=== PATIENT | female | born 1940 | race Caucasian/White ===

== ENCOUNTER → 2023-05-22 13:50 | Outpatient (REF) | payer OTHER, SELFPAY ==
[2023-05-22 14:41] LABS: % Basophils 0.8 % (0-2); % Eosinophils 3.4 % (0-6); % Immature Granulocytes 0.4 % (0-0.5); % Lymphocytes 11.2 % (20.5-51.1); % Monocytes 5.8 % (1.7-9.3); % Neutrophils 78.4 % (42.2-75.2); Absolute Basophils 0.1 10^3/uL (0-0.2); Absolute Eosinophils 0.3 10^3/uL (0-0.7); Absolute Monocytes 0.5 10^3/uL (0.1-0.6); Absolute Neutrophils 6.7 10^3/uL (1.4-6.5); Hematocrit 39.4 % (37.0-47.0); Hemoglobin 13.3 g/dL (12.0-16.0); Mean Corp Hgb Conc. 33.8 g/dL (33.0-37.0); Mean Corpuscular Volume 88.9 fL (81.0-99.0); Mean Platelet Volume 10.1 fL (7.4-10.4); Nucleated Red Blood Cells % 0 %; Platelet Count 258 10^3/uL (130-400); Red Blood Cell Count 4.43 10^6/uL (4.20-5.40); Red Cell Dist. Width 14.6 % (11.5-14.5); White Blood Cell Count 8.5 10^3/uL (4.8-10.8)
[2023-05-22 15:25] LABS: ALT (SGPT) 28 U/L (0-35); AST (SGOT) 30 U/L (14-36); Albumin 2.6 g/dl (3.5-5.0); Alkaline Phosphatase 183 U/L (38-126); Blood Urea Nitrogen 13 mg/dl (7-17); Calcium 7.9 mg/dl (8.4-10.2); Carbon Dioxide 29 mmol/L (22-30); Chloride 109 mmol/L (98-107); Direct Bilirubin 0.5 mg/dl (0.0-0.4); Glucose 98 mg/dl (70-99); Magnesium 2.3 mg/dl (1.6-2.3); Phosphorus 3.5 mg/dl (2.5-4.5); Potassium 4.4 mmol/L (3.5-5.1); Sodium 136 mmol/L (135-145); Total Bilirubin 0.5 mg/dl (0.2-1.3); Total Protein 4.9 g/dl (6.3-8.2); eGFR > 60.00
== END ==
LOC: REG 13:50
PROVIDERS: ATTENDING PHYSICIAN Internal Medicine Hematology & Oncology; FAMILY PHYSICIAN Internal Medicine
DX: C34.11 Malignant neoplasm of upper lobe, right bronchus or lung (principal); C78.7 Secondary malignant neoplasm of liver and intrahepatic bile duct; C79.51 Secondary malignant neoplasm of bone
CPT/HCPCS: 36415; 80053; 82248; 83735; 84100; 85025

== ENCOUNTER → 2023-06-04 06:38 | Outpatient (REF) | payer OTHER, SELFPAY ==
[2023-06-04 07:06] LABS: % Basophils 0.9 % (0-2); % Immature Granulocytes 0.3 % (0-0.5); % Lymphocytes 18.4 % (20.5-51.1); % Monocytes 10.8 % (1.7-9.3); % Neutrophils 66.6 % (42.2-75.2); Absolute Basophils 0.1 10^3/uL (0-0.2); Absolute Eosinophils 0.2 10^3/uL (0-0.7); Absolute Lymphocytes 1.2 10^3/uL (1.2-3.4); Absolute Monocytes 0.7 10^3/uL (0.1-0.6); Absolute Neutrophils 4.4 10^3/uL (1.4-6.5); Hematocrit 39.2 % (37.0-47.0); Hemoglobin 12.8 g/dL (12.0-16.0); Mean Corp Hgb Conc. 32.7 g/dL (33.0-37.0); Mean Corpuscular Hgb 29.6 pg (27.0-31.0); Mean Corpuscular Volume 90.7 fL (81.0-99.0); Mean Platelet Volume 9.5 fL (7.4-10.4); Nucleated Red Blood Cells % 0 %; Platelet Count 242 10^3/uL (130-400); Red Blood Cell Count 4.32 10^6/uL (4.20-5.40); Red Cell Dist. Width 14.2 % (11.5-14.5); White Blood Cell Count 6.6 10^3/uL (4.8-10.8)
[2023-06-04 07:32] LABS: ALT (SGPT) 22 U/L (0-35); AST (SGOT) 24 U/L (14-36); Albumin 2.5 g/dl (3.5-5.0); Alkaline Phosphatase 143 U/L (38-126); Blood Urea Nitrogen 16 mg/dl (7-17); Calcium 8.1 mg/dl (8.4-10.2); Carbon Dioxide 28 mmol/L (22-30); Chloride 106 mmol/L (98-107); Direct Bilirubin 0.3 mg/dl (0.0-0.4); Glucose 105 mg/dl (70-99); Phosphorus 3.2 mg/dl (2.5-4.5); Potassium 3.7 mmol/L (3.5-5.1); Sodium 138 mmol/L (135-145); Total Bilirubin 0.4 mg/dl (0.2-1.3); Total Protein 4.8 g/dl (6.3-8.2); eGFR > 60.00
== END ==
LOC: REG 06:38
PROVIDERS: ATTENDING PHYSICIAN Internal Medicine Hematology & Oncology; FAMILY PHYSICIAN Internal Medicine
DX: C34.11 Malignant neoplasm of upper lobe, right bronchus or lung (principal); C78.7 Secondary malignant neoplasm of liver and intrahepatic bile duct; C79.51 Secondary malignant neoplasm of bone
CPT/HCPCS: 36415; 80053; 82248; 83735; 84100; 85025

== ENCOUNTER → 2023-06-15 08:54 | Outpatient (REF) | payer OTHER, SELFPAY | LOC: MRI 08:54 | PROVIDERS: ATTENDING PHYSICIAN Nurse Practitioner Adult Health; FAMILY PHYSICIAN Internal Medicine | DX: C34.11 Malignant neoplasm of upper lobe, right bronchus or lung (principal); C78.7 Secondary malignant neoplasm of liver and intrahepatic bile duct; C79.51 Secondary malignant neoplasm of bone | CPT/HCPCS: 72158; A9575 ==

== ENCOUNTER → 2023-06-18 12:08 | Outpatient (REF) | payer OTHER, SELFPAY ==
[2023-06-18 12:57] LABS: % Basophils 0.6 % (0-2); % Eosinophils 1.7 % (0-6); % Immature Granulocytes 0.5 % (0-0.5); % Monocytes 7.9 % (1.7-9.3); % Neutrophils 76.3 % (42.2-75.2); Absolute Basophils 0.1 10^3/uL (0-0.2); Absolute Eosinophils 0.2 10^3/uL (0-0.7); Absolute Lymphocytes 1.1 10^3/uL (1.2-3.4); Absolute Monocytes 0.7 10^3/uL (0.1-0.6); Absolute Neutrophils 6.6 10^3/uL (1.4-6.5); Hematocrit 45.7 % (37.0-47.0); Hemoglobin 15.5 g/dL (12.0-16.0); Mean Corp Hgb Conc. 33.9 g/dL (33.0-37.0); Mean Corpuscular Hgb 29.5 pg (27.0-31.0); Mean Corpuscular Volume 86.9 fL (81.0-99.0); Mean Platelet Volume 10.1 fL (7.4-10.4); Nucleated Red Blood Cells % 0 %; Platelet Count 276 10^3/uL (130-400); Red Blood Cell Count 5.26 10^6/uL (4.20-5.40); Red Cell Dist. Width 14.1 % (11.5-14.5); White Blood Cell Count 8.7 10^3/uL (4.8-10.8)
[2023-06-18 13:32] LABS: ALT (SGPT) 30 U/L (0-35); AST (SGOT) 35 U/L (14-36); Albumin 2.9 g/dl (3.5-5.0); Alkaline Phosphatase 142 U/L (38-126); Blood Urea Nitrogen 18 mg/dl (7-17); Calcium 8.9 mg/dl (8.4-10.2); Carbon Dioxide 36 mmol/L (22-30); Chloride 95 mmol/L (98-107); Direct Bilirubin 0.4 mg/dl (0.0-0.4); Glucose 123 mg/dl (70-99); Magnesium 2.1 mg/dl (1.6-2.3); Phosphorus 3.3 mg/dl (2.5-4.5); Potassium 3.1 mmol/L (3.5-5.1); Sodium 137 mmol/L (135-145); Total Bilirubin 0.9 mg/dl (0.2-1.3); Total Protein 5.7 g/dl (6.3-8.2); eGFR > 60.00
== END ==
LOC: REG 12:08
PROVIDERS: ATTENDING PHYSICIAN Internal Medicine Hematology & Oncology; FAMILY PHYSICIAN Internal Medicine
DX: C34.11 Malignant neoplasm of upper lobe, right bronchus or lung (principal); C78.7 Secondary malignant neoplasm of liver and intrahepatic bile duct; C79.51 Secondary malignant neoplasm of bone
CPT/HCPCS: 36415; 80053; 82248; 83735; 84100; 85025

== ENCOUNTER → 2023-07-02 14:21 | Outpatient (REF) | payer OTHER, SELFPAY ==
[2023-07-02 14:54] LABS: % Basophils 0.7 % (0-2); % Eosinophils 1.6 % (0-6); % Immature Granulocytes 0.2 % (0-0.5); % Lymphocytes 14.4 % (20.5-51.1); % Monocytes 5.2 % (1.7-9.3); % Neutrophils 77.9 % (42.2-75.2); Absolute Basophils 0.1 10^3/uL (0-0.2); Absolute Eosinophils 0.1 10^3/uL (0-0.7); Absolute Lymphocytes 1.2 10^3/uL (1.2-3.4); Absolute Monocytes 0.4 10^3/uL (0.1-0.6); Absolute Neutrophils 6.2 10^3/uL (1.4-6.5); Hematocrit 42.4 % (37.0-47.0); Hemoglobin 14.2 g/dL (12.0-16.0); Mean Corp Hgb Conc. 33.5 g/dL (33.0-37.0); Mean Corpuscular Hgb 29.3 pg (27.0-31.0); Mean Corpuscular Volume 87.4 fL (81.0-99.0); Mean Platelet Volume 9.8 fL (7.4-10.4); Nucleated Red Blood Cells % 0 %; Platelet Count 228 10^3/uL (130-400); Red Blood Cell Count 4.85 10^6/uL (4.20-5.40); Red Cell Dist. Width 14.6 % (11.5-14.5)
[2023-07-02 15:14] LABS: ALT (SGPT) 36 U/L (0-35); AST (SGOT) 34 U/L (14-36); Albumin 2.9 g/dl (3.5-5.0); Alkaline Phosphatase 135 U/L (38-126); Blood Urea Nitrogen 21 mg/dl (7-17); Calcium 8.4 mg/dl (8.4-10.2); Carbon Dioxide 35 mmol/L (22-30); Chloride 103 mmol/L (98-107); Glucose 100 mg/dl (70-99); Magnesium 2.1 mg/dl (1.6-2.3); Potassium 3.2 mmol/L (3.5-5.1); Sodium 138 mmol/L (135-145); Total Bilirubin 0.7 mg/dl (0.2-1.3); Total Protein 5.4 g/dl (6.3-8.2); eGFR > 60.00
== END ==
LOC: REG 14:21
PROVIDERS: ATTENDING PHYSICIAN Internal Medicine Hematology & Oncology
DX: C34.11 Malignant neoplasm of upper lobe, right bronchus or lung (principal); C78.7 Secondary malignant neoplasm of liver and intrahepatic bile duct; C79.51 Secondary malignant neoplasm of bone
CPT/HCPCS: 36415; 80053; 82248; 83735; 84100; 85025

== ENCOUNTER → 2023-07-17 09:31 | Outpatient (REF) | payer OTHER, SELFPAY ==
[2023-07-17 10:51] LABS: % Basophils 0.9 % (0-2); % Eosinophils 2.6 % (0-6); % Immature Granulocytes 0.3 % (0-0.5); % Lymphocytes 15.8 % (20.5-51.1); % Neutrophils 74.4 % (42.2-75.2); Absolute Basophils 0.1 10^3/uL (0-0.2); Absolute Eosinophils 0.2 10^3/uL (0-0.7); Absolute Lymphocytes 1.1 10^3/uL (1.2-3.4); Absolute Monocytes 0.4 10^3/uL (0.1-0.6); Absolute Neutrophils 5.1 10^3/uL (1.4-6.5); Hematocrit 40.9 % (37.0-47.0); Hemoglobin 13.5 g/dL (12.0-16.0); Mean Corpuscular Hgb 29.2 pg (27.0-31.0); Mean Corpuscular Volume 88.3 fL (81.0-99.0); Mean Platelet Volume 9.8 fL (7.4-10.4); Nucleated Red Blood Cells % 0 %; Platelet Count 212 10^3/uL (130-400); Red Blood Cell Count 4.63 10^6/uL (4.20-5.40); Red Cell Dist. Width 16.1 % (11.5-14.5); White Blood Cell Count 6.9 10^3/uL (4.8-10.8)
[2023-07-17 11:26] LABS: ALT (SGPT) 26 U/L (0-35); AST (SGOT) 28 U/L (14-36); Alkaline Phosphatase 124 U/L (38-126); Blood Urea Nitrogen 16 mg/dl (7-17); Calcium 8.7 mg/dl (8.4-10.2); Carbon Dioxide 26 mmol/L (22-30); Chloride 104 mmol/L (98-107); Glucose 97 mg/dl (70-99); Magnesium 2.1 mg/dl (1.6-2.3); Phosphorus 3.7 mg/dl (2.5-4.5); Potassium 4.2 mmol/L (3.5-5.1); Sodium 136 mmol/L (135-145); Total Bilirubin 0.6 mg/dl (0.2-1.3); Total Protein 5.4 g/dl (6.3-8.2); eGFR > 60.00
== END ==
LOC: REG 09:31
PROVIDERS: ATTENDING PHYSICIAN Internal Medicine Hematology & Oncology; FAMILY PHYSICIAN Internal Medicine
DX: C34.11 Malignant neoplasm of upper lobe, right bronchus or lung (principal); C78.7 Secondary malignant neoplasm of liver and intrahepatic bile duct; C79.51 Secondary malignant neoplasm of bone
CPT/HCPCS: 36415; 80053; 82248; 83735; 84100; 85025

== ENCOUNTER 2023-07-20 14:51 | Outpatient (RCR) | payer OTHER, SELFPAY | END 2023-07-20 23:59 | disposition home or self-care (01) | LOC: RPT 14:51 | PROVIDERS: ATTENDING PHYSICIAN Internal Medicine Hematology & Oncology | DX: R53.1 Weakness (principal); Z73.6 Limitation of activities due to disability; M54.6 Pain in thoracic spine; R26.89 Other abnormalities of gait and mobility; Z85.118 Personal history of other malignant neoplasm of bronchus and lung; Z90.2 Acquired absence of lung [part of] | CPT/HCPCS: 97110; 97162 ==

== ENCOUNTER → 2023-08-01 16:27 | Outpatient (REF) | payer OTHER, SELFPAY ==
[2023-08-01 09:36] LABS: % Basophils 0.6 % (0-2); % Eosinophils 2.1 % (0-6); % Immature Granulocytes 0.1 % (0-0.5); % Lymphocytes 11.4 % (20.5-51.1); % Monocytes 6.1 % (1.7-9.3); % Neutrophils 79.7 % (42.2-75.2); Absolute Eosinophils 0.2 10^3/uL (0-0.7); Absolute Lymphocytes 0.8 10^3/uL (1.2-3.4); Absolute Monocytes 0.4 10^3/uL (0.1-0.6); Absolute Neutrophils 5.6 10^3/uL (1.4-6.5); Hematocrit 38.9 % (37.0-47.0); Hemoglobin 12.9 g/dL (12.0-16.0); Mean Corp Hgb Conc. 33.2 g/dL (33.0-37.0); Mean Corpuscular Hgb 29.6 pg (27.0-31.0); Mean Corpuscular Volume 89.2 fL (81.0-99.0); Mean Platelet Volume 9.3 fL (7.4-10.4); Platelet Count 215 10^3/uL (130-400); Red Blood Cell Count 4.36 10^6/uL (4.20-5.40); Red Cell Dist. Width 16.7 % (11.5-14.5)
[2023-08-01 10:17] LABS: ALT (SGPT) 29 U/L (0-35); AST (SGOT) 28 U/L (14-36); Albumin 2.8 g/dl (3.5-5.0); Alkaline Phosphatase 138 U/L (38-126); Blood Urea Nitrogen 16 mg/dl (7-17); Calcium 8.4 mg/dl (8.4-10.2); Carbon Dioxide 27 mmol/L (22-30); Chloride 109 mmol/L (98-107); Glucose 103 mg/dl (70-99); Sodium 136 mmol/L (135-145); Total Bilirubin 0.4 mg/dl (0.2-1.3); eGFR > 60.00
== END ==
LOC: OIDL 16:27
PROVIDERS: ATTENDING PHYSICIAN Internal Medicine Hematology & Oncology
DX: C34.11 Malignant neoplasm of upper lobe, right bronchus or lung (principal)
CPT/HCPCS: 80053; 85025

== ENCOUNTER 2023-08-03 14:05 | Outpatient (RCR) | payer OTHER, SELFPAY | END 2023-08-03 15:53 | disposition home or self-care (01) | LOC: RPT 14:05 | PROVIDERS: ATTENDING PHYSICIAN Internal Medicine Hematology & Oncology | DX: R53.1 Weakness (principal); Z73.6 Limitation of activities due to disability; Z85.118 Personal history of other malignant neoplasm of bronchus and lung; Z90.2 Acquired absence of lung [part of] | CPT/HCPCS: 97110; 97112 ==

== ENCOUNTER → 2023-08-14 11:23 | Outpatient (REF) | payer OTHER, SELFPAY ==
[2023-08-14 12:30] LABS: % Basophils 0.7 % (0-2); % Eosinophils 1.2 % (0-6); % Immature Granulocytes 0.2 % (0-0.5); % Lymphocytes 11.8 % (20.5-51.1); % Monocytes 6.5 % (1.7-9.3); % Neutrophils 79.6 % (42.2-75.2); Absolute Basophils 0.1 10^3/uL (0-0.2); Absolute Eosinophils 0.1 10^3/uL (0-0.7); Absolute Monocytes 0.6 10^3/uL (0.1-0.6); Absolute Neutrophils 6.8 10^3/uL (1.4-6.5); Hematocrit 42.7 % (37.0-47.0); Hemoglobin 14.1 g/dL (12.0-16.0); Mean Corpuscular Hgb 29.4 pg (27.0-31.0); Mean Platelet Volume 9.7 fL (7.4-10.4); Nucleated Red Blood Cells % 0 %; Platelet Count 240 10^3/uL (130-400); Red Cell Dist. Width 16.8 % (11.5-14.5); White Blood Cell Count 8.6 10^3/uL (4.8-10.8)
[2023-08-14 13:26] LABS: ALT (SGPT) 27 U/L (0-35); AST (SGOT) 29 U/L (14-36); Albumin 3.1 g/dl (3.5-5.0); Alkaline Phosphatase 147 U/L (38-126); Blood Urea Nitrogen 17 mg/dl (7-17); Carbon Dioxide 34 mmol/L (22-30); Chloride 102 mmol/L (98-107); Direct Bilirubin 0.2 mg/dl (0.0-0.4); Glucose 100 mg/dl (70-99); Phosphorus 3.7 mg/dl (2.5-4.5); Potassium 3.5 mmol/L (3.5-5.1); Sodium 138 mmol/L (135-145); Total Bilirubin 0.5 mg/dl (0.2-1.3); Total Protein 5.5 g/dl (6.3-8.2); eGFR > 60.00
== END ==
LOC: REG 11:23
PROVIDERS: ATTENDING PHYSICIAN Internal Medicine Hematology & Oncology; FAMILY PHYSICIAN Internal Medicine
DX: C34.11 Malignant neoplasm of upper lobe, right bronchus or lung (principal); C78.7 Secondary malignant neoplasm of liver and intrahepatic bile duct; C79.51 Secondary malignant neoplasm of bone
CPT/HCPCS: 36415; 80053; 82248; 83735; 84100; 85025

== ENCOUNTER → 2023-08-28 08:29 | Outpatient (REF) | payer OTHER, SELFPAY ==
[2023-08-28 09:50] LABS: % Basophils 0.6 % (0-2); % Immature Granulocytes 0.5 % (0-0.5); % Lymphocytes 13.3 % (20.5-51.1); % Monocytes 7.6 % (1.7-9.3); Absolute Basophils 0.1 10^3/uL (0-0.2); Absolute Eosinophils 0.2 10^3/uL (0-0.7); Absolute Lymphocytes 1.1 10^3/uL (1.2-3.4); Absolute Monocytes 0.7 10^3/uL (0.1-0.6); Absolute Neutrophils 6.5 10^3/uL (1.4-6.5); Hematocrit 38.6 % (37.0-47.0); Hemoglobin 12.6 g/dL (12.0-16.0); Mean Corp Hgb Conc. 32.6 g/dL (33.0-37.0); Mean Corpuscular Hgb 29.5 pg (27.0-31.0); Mean Corpuscular Volume 90.4 fL (81.0-99.0); Mean Platelet Volume 10.1 fL (7.4-10.4); Nucleated Red Blood Cells % 0 %; Platelet Count 249 10^3/uL (130-400); Red Blood Cell Count 4.27 10^6/uL (4.20-5.40); Red Cell Dist. Width 16.2 % (11.5-14.5); White Blood Cell Count 8.6 10^3/uL (4.8-10.8)
[2023-08-28 11:17] LABS: ALT (SGPT) 39 U/L (0-35); AST (SGOT) 34 U/L (14-36); Albumin 2.7 g/dl (3.5-5.0); Alkaline Phosphatase 147 U/L (38-126); Direct Bilirubin 0.3 mg/dl (0.0-0.4); Magnesium 2.2 mg/dl (1.6-2.3); Phosphorus 4.3 mg/dl (2.5-4.5); Total Bilirubin 0.9 mg/dl (0.2-1.3); Total Protein 5.1 g/dl (6.3-8.2)
== END ==
LOC: REG 08:29
PROVIDERS: ATTENDING PHYSICIAN Internal Medicine Hematology & Oncology
DX: C34.11 Malignant neoplasm of upper lobe, right bronchus or lung (principal); C78.7 Secondary malignant neoplasm of liver and intrahepatic bile duct; C79.51 Secondary malignant neoplasm of bone; G25.81 Restless legs syndrome
CPT/HCPCS: 36415; 80076; 83735; 84100; 85025

== ENCOUNTER → 2023-09-11 11:12 | Outpatient (REF) | payer OTHER, SELFPAY ==
[2023-09-11 12:03] LABS: % Basophils 0.8 % (0-2); % Eosinophils 1.8 % (0-6); % Immature Granulocytes 0.4 % (0-0.5); % Lymphocytes 13.3 % (20.5-51.1); % Monocytes 6.2 % (1.7-9.3); % Neutrophils 77.5 % (42.2-75.2); Absolute Basophils 0.1 10^3/uL (0-0.2); Absolute Eosinophils 0.1 10^3/uL (0-0.7); Absolute Monocytes 0.5 10^3/uL (0.1-0.6); Mean Corp Hgb Conc. 33.3 g/dL (33.0-37.0); Mean Corpuscular Hgb 29.8 pg (27.0-31.0); Mean Corpuscular Volume 89.4 fL (81.0-99.0); Mean Platelet Volume 9.7 fL (7.4-10.4); Nucleated Red Blood Cells % 0 %; Platelet Count 224 10^3/uL (130-400); Red Blood Cell Count 4.36 10^6/uL (4.20-5.40); Red Cell Dist. Width 16.3 % (11.5-14.5); White Blood Cell Count 7.8 10^3/uL (4.8-10.8)
[2023-09-11 12:42] LABS: ALT (SGPT) 29 U/L (0-35); AST (SGOT) 29 U/L (14-36); Albumin 2.7 g/dl (3.5-5.0); Alkaline Phosphatase 157 U/L (38-126); Blood Urea Nitrogen 14 mg/dl (7-17); Calcium 8.8 mg/dl (8.4-10.2); Carbon Dioxide 31 mmol/L (22-30); Chloride 103 mmol/L (98-107); Direct Bilirubin 0.2 mg/dl (0.0-0.4); Glucose 102 mg/dl (70-99); Phosphorus 3.7 mg/dl (2.5-4.5); Potassium 3.7 mmol/L (3.5-5.1); Sodium 138 mmol/L (135-145); Total Bilirubin 0.7 mg/dl (0.2-1.3); Total Protein 5.2 g/dl (6.3-8.2); eGFR > 60.00
== END ==
LOC: REG 11:12
PROVIDERS: ATTENDING PHYSICIAN Internal Medicine Hematology & Oncology; FAMILY PHYSICIAN Internal Medicine
DX: C34.11 Malignant neoplasm of upper lobe, right bronchus or lung (principal); C78.7 Secondary malignant neoplasm of liver and intrahepatic bile duct; C79.51 Secondary malignant neoplasm of bone; G25.81 Restless legs syndrome
CPT/HCPCS: 36415; 80053; 82248; 83735; 84100; 85025

== ENCOUNTER → 2023-09-14 14:20 | Outpatient (REF) | payer OTHER, SELFPAY ==
[2023-09-14 16:10] LABS: Magnesium 2.1 mg/dl (1.6-2.3)
== END ==
LOC: REG 14:20
PROVIDERS: ATTENDING PHYSICIAN Internal Medicine Hematology & Oncology
DX: C34.11 Malignant neoplasm of upper lobe, right bronchus or lung (principal); C78.7 Secondary malignant neoplasm of liver and intrahepatic bile duct; C79.51 Secondary malignant neoplasm of bone; G25.81 Restless legs syndrome
CPT/HCPCS: 36415; 83735

== ENCOUNTER → 2023-09-19 12:38 | Outpatient (REF) | payer OTHER, SELFPAY | LOC: PET 12:38 | PROVIDERS: ATTENDING PHYSICIAN Internal Medicine Hematology & Oncology | DX: C34.11 Malignant neoplasm of upper lobe, right bronchus or lung (principal) | CPT/HCPCS: 78816; A9552 ==

== ENCOUNTER → 2023-10-02 06:20 | Outpatient (REF) | payer OTHER, SELFPAY ==
[2023-10-02 07:25] LABS: % Basophils 1.1 % (0-2); % Immature Granulocytes 0.3 % (0-0.5); % Lymphocytes 16.7 % (20.5-51.1); % Monocytes 10.2 % (1.7-9.3); % Neutrophils 67.7 % (42.2-75.2); Absolute Basophils 0.1 10^3/uL (0-0.2); Absolute Eosinophils 0.3 10^3/uL (0-0.7); Absolute Lymphocytes 1.1 10^3/uL (1.2-3.4); Absolute Monocytes 0.7 10^3/uL (0.1-0.6); Absolute Neutrophils 4.5 10^3/uL (1.4-6.5); Hematocrit 39.5 % (37.0-47.0); Mean Corp Hgb Conc. 32.9 g/dL (33.0-37.0); Mean Corpuscular Hgb 29.7 pg (27.0-31.0); Mean Corpuscular Volume 90.4 fL (81.0-99.0); Nucleated Red Blood Cells % 0 %; Platelet Count 230 10^3/uL (130-400); Red Blood Cell Count 4.37 10^6/uL (4.20-5.40); Red Cell Dist. Width 14.7 % (11.5-14.5); White Blood Cell Count 6.6 10^3/uL (4.8-10.8)
[2023-10-02 07:47] LABS: ALT (SGPT) 23 U/L (0-35); AST (SGOT) 27 U/L (14-36); Albumin 2.7 g/dl (3.5-5.0); Alkaline Phosphatase 142 U/L (38-126); Blood Urea Nitrogen 20 mg/dl (7-17); Calcium 8.8 mg/dl (8.4-10.2); Carbon Dioxide 37 mmol/L (22-30); Chloride 99 mmol/L (98-107); Glucose 92 mg/dl (70-99); Potassium 3.4 mmol/L (3.5-5.1); Sodium 139 mmol/L (135-145); Total Bilirubin 0.6 mg/dl (0.2-1.3); Total Protein 5.2 g/dl (6.3-8.2); eGFR > 60.00
== END ==
LOC: REG 06:20
PROVIDERS: ATTENDING PHYSICIAN Internal Medicine Hematology & Oncology; FAMILY PHYSICIAN Internal Medicine
DX: C34.11 Malignant neoplasm of upper lobe, right bronchus or lung (principal); C78.7 Secondary malignant neoplasm of liver and intrahepatic bile duct; C79.51 Secondary malignant neoplasm of bone; G25.81 Restless legs syndrome
CPT/HCPCS: 36415; 80053; 85025

== ENCOUNTER → 2023-10-08 08:29 | Outpatient (REF) | payer OTHER, SELFPAY ==
[2023-10-08 08:40] VITALS: BP 109/61; BP_SYST 84
[2023-10-08] MEDS: VANCOCIN 200 IV (09:09)
[2023-10-08 09:15] VITALS: BP 114/57
[2023-10-08 10:35] VITALS: BP 123/60; BP_SYST 68
[2023-10-08 10:45] VITALS: BP 107/56; BP_SYST 67
[2023-10-08 10:58] VITALS: BP 118/61; BP_SYST 77
[2023-10-08 11:30] VITALS: BP 118/61
== END ==
LOC: RADI 08:29
PROVIDERS: ATTENDING PHYSICIAN Internal Medicine Hematology & Oncology; FAMILY PHYSICIAN Internal Medicine
DX: C34.11 Malignant neoplasm of upper lobe, right bronchus or lung (principal); C78.7 Secondary malignant neoplasm of liver and intrahepatic bile duct; C79.51 Secondary malignant neoplasm of bone
CPT/HCPCS: 36561; 76937; 77001; 99152; 99153; C1788

== ENCOUNTER → 2023-10-19 11:12 | Outpatient (REF) | payer OTHER, SELFPAY ==
[2023-10-19 12:25] LABS: % Basophils 0.9 % (0-2); % Eosinophils 2.8 % (0-6); % Lymphocytes 9.5 % (20.5-51.1); % Monocytes 7.9 % (1.7-9.3); % Neutrophils 74.9 % (42.2-75.2); Absolute Basophils 0.1 10^3/uL (0-0.2); Absolute Eosinophils 0.3 10^3/uL (0-0.7); Absolute Immature Granulocytes 0.4 10^3/uL (0-0.05); Absolute Monocytes 0.9 10^3/uL (0.1-0.6); Absolute Neutrophils 8.2 10^3/uL (1.4-6.5); Hematocrit 35.1 % (37.0-47.0); Hemoglobin 11.9 g/dL (12.0-16.0); Mean Corp Hgb Conc. 33.9 g/dL (33.0-37.0); Mean Corpuscular Hgb 30.1 pg (27.0-31.0); Mean Corpuscular Volume 88.9 fL (81.0-99.0); Mean Platelet Volume 9.8 fL (7.4-10.4); Nucleated Red Blood Cells % 0 %; Platelet Count 242 10^3/uL (130-400); Red Blood Cell Count 3.95 10^6/uL (4.20-5.40); Red Cell Dist. Width 14.3 % (11.5-14.5); White Blood Cell Count 10.9 10^3/uL (4.8-10.8)
[2023-10-19 12:54] LABS: ALT (SGPT) 19 U/L (0-35); AST (SGOT) 24 U/L (14-36); Albumin 2.6 g/dl (3.5-5.0); Alkaline Phosphatase 133 U/L (38-126); Blood Urea Nitrogen 13 mg/dl (7-17); Calcium 8.4 mg/dl (8.4-10.2); Carbon Dioxide 35 mmol/L (22-30); Chloride 99 mmol/L (98-107); Glucose 102 mg/dl (70-99); Potassium 3.5 mmol/L (3.5-5.1); Sodium 136 mmol/L (135-145); Total Bilirubin 0.4 mg/dl (0.2-1.3); Total Protein 4.8 g/dl (6.3-8.2); eGFR > 60.00
== END ==
LOC: REG 11:12
PROVIDERS: ATTENDING PHYSICIAN Internal Medicine Hematology & Oncology; FAMILY PHYSICIAN Internal Medicine
DX: C34.11 Malignant neoplasm of upper lobe, right bronchus or lung (principal); C78.7 Secondary malignant neoplasm of liver and intrahepatic bile duct; C79.51 Secondary malignant neoplasm of bone; G25.81 Restless legs syndrome
CPT/HCPCS: 36415; 80053; 85025

== ENCOUNTER 2023-10-30 23:43 | Inpatient (IN) | payer OTHER, SELFPAY ==
[2023-10-30 21:03] VITALS: BMI 25.6
[2023-10-30 21:04] VITALS: BP 131/62
--- NOTE | 2023-10-30 21:28 | VATNOTE ---
attempted to access right port. Unsuccessful x3. Pt asked if port had 'flipped'. Was able to obtain blood return last stick however when flushed again noted to swell as tho needle was infiltrated and tissue around a portion of the port swelled.
Also witnessed by Felecia JONAS & another LOCOMOTIVE CRANE OPERATOR, Mine. 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 Unsure at this time and inquired of Jasvir to order a CXR to verify port
placement.
--- NOTE | 2023-10-30 21:34 | ED.GENMED ---
History of Present Illness
General
Chief Complaint: Abdominal Symptoms
Source: patient
Exam Limitations: none
Time Seen by Provider: 10/30/23 21:02
History of Present Illness
History of Present Illness:
This is a 83 year old female that comes in with c/o vomiting. States that she started vomiting last evening and she hasn't been able to stop. States that she had Chemo last Sunday. States that she has lung cancer with mets to liver and bone.
States that she is also having some urinary burning. Denies any fever, chills, chest pain, SOB, abd pain, diarrhea, headache, dizziness.
Past History
Past History
ED Past Medical History: Cancer (Lung cancer with mets to bone and liver), Hypercholesterolemia, Psychiatric (Alcohol abuse) and Other (Restless leg syndrome)
ED Past Surgical History: Appendectomy, Cholecystectomy, Gynecological and Orthopedic (Bilateral hip replacement, Left knee replacement, Don foot surgery)
Social History
Tobacco: Former smoker
Alcohol: Occasional
Drug: None
Personal:
Living: with family
Review of Systems
Review of Systems
All Other Systems: ROS reviewed and negative except as documented in HPI and ROS
Constitutional: Reports no symptoms; Denies fever or chills
EENT: Reports no symptoms
Respiratory: Reports no symptoms; Denies cough or trouble breathing
Cardiac: Reports no symptoms; Denies chest pain
ABD/GI: Reports nausea and vomiting; Denies abdominal pain or diarrhea
: Reports dysuria; Denies frequency or urgency
Musculoskeletal: Reports no symptoms
Skin: Reports no symptoms
Neurological: Reports no symptoms; Denies dizzy or headache
Psychiatric: Reports no symptoms
Phy Exam
General Physical Exam
General Presentation: no apparent distress
General age: appears stated age
General Skin: warm and dry
General Habitus: elderly
General Mental: alert
General Hydration: appears well hydrated
ENT Exam
ENT Exam: TM's normal, pharynx normal and neck supple
Eye Exam
Eye Exam: EOMI
Cardiovascular Exam
Cardiovascular Exam: regular rate/rhythm, no edema, no murmur and normal peripheral pulses
Pulmonary Exam
Pulmonary Exam: no respiratory distress, no rales, chest non tender, no crackles, no rhonchi, no cough and other (Occasional right sided wheeze)
Gastrointestinal Exam
Gastrointestinal Exam: normal bowel sounds, soft, no organomegaly, no pulsatile mass, non distended and tender (Right sided tenderness with palpation only)
Musculoskeletal Exam
Musculoskeletal Exam: full ROM and no edema
Skin Exam
Skin Exam: normal color, warm/dry, no petechia and other (rash noted over the upper chest, arms and lower legs small red spots, Redness of the lower legs R>L with small open areas on the anterior lower legs)
Psychiatric Exam
Psychiatric Exam: normal mood/affect
Course
Orders/Labs/Results
Orders:
Orders
10/30/23 21:01
IV Insert/Care/Rem.- Treatment PRN
10/30/23 21:02
Electrocardiogram (*1) Urgent
Reason for Study: Abdominal Pain
EKG- Treatment ONCE
10/30/23 21:22
Urinalysis Reflex To Culture Urgent
0.9% Sodium Chloride 1000 ml [Nss] 1,000 ml IV BOLUS
Ondansetron Injectable [Zofran] 4 mg IV NOW STA
Oxycodone [Roxicodone] 10 mg PO NOW STA
10/30/23 21:34
CR Chest - 2 Views Urgent
Comment: CONERN THAT PORT FLIPPED
Reason For Exam: pORT PLACEMENT.
10/30/23 22:13
Complete Blood Count/With Diff Urgent
Comprehensive Metabolic Panel Urgent
Lactate Level [Lactic Acid] Urgent
Lipase Urgent
Blood Culture Urgent
CARLOS Source: Blood/Venous
Specimen Description:
10/30/23 23:00
Alteplase [Cathflo/Activase] 2 mg INTRACATH NOW STA
Flush (0.9% Sodium Chloride) [Flush (Nss)] See Dose Instructions IV PER PROTOCOL
Ropinirole [Requip] 2 mg PO NOW STA
10/30/23 23:16
LevoFLOXacin 500 MG/100 ML [Levaquin] 500 mg in 100 ml IV NOW
Abnormal Lab Results
10/30/23
22:13
WBC 17.1 H 10^3/uL
(4.8-10.8)
Hct 36.4 L %
(37.0-47.0)
RDW 14.6 H %
(11.5-14.5)
Abs Immat Gran (auto) 0.2 H 10^3/uL
(0-0.05)
Absolute Neuts (auto) 14.1 H 10^3/uL
(1.4-6.5)
Absolute Lymphs (auto) 0.9 L 10^3/uL
(1.2-3.4)
Absolute Monos (auto) 1.8 H 10^3/uL
(0.1-0.6)
Immature Gran % 1.2 H %
(0-0.5)
Neutrophils % 82.4 H %
(42.2-75.2)
Lymphocytes % 5.5 L %
(20.5-51.1)
Monocytes % 10.4 H %
(1.7-9.3)
Potassium 3.2 L mmol/L
(3.5-5.1)
Creatinine 0.4 L mg/dL
(0.6-1.0)
Glucose 103 H mg/dl
(70-99)
Calcium 8.2 L mg/dl
(8.4-10.2)
Alkaline Phosphatase 170 H U/L
(38-126)
Total Protein 5.2 L g/dl
(6.3-8.2)
Albumin 2.8 L g/dl
(3.5-5.0)
10/30/23 22:13
10/30/23 22:13
Leukocytosis, Slight Hypokalemia, Glucose nonfasting. calcium slightly low. Alk phos elevation (patient has Cancer) Total protein low. Albumin low. Lipase normal at 61
Vital Signs
Initial and Last Documented VS:
Initial Vital Signs
Temp Pulse Resp Pulse Ox
98.1 F 89 22 97
10/30/23 21:03 10/30/23 21:03 10/30/23 21:03 10/30/23 21:03
Last Documented Vital Signs
Temp Pulse Resp BP Pulse Ox
98.1 F 83 17 114/55 95
10/30/23 21:03 10/31/23 00:00 10/31/23 00:00 10/31/23 00:00 10/30/23 23:00
MDM/Problems Addressed
Differential Diagnosis Includes:
Nausea and vomiting from Chemo, UTI
MDM/Problems Addressed:
This is a 83 year old female that comes in with c/o nausea and vomiting. States that this started last night and she can't keep anything down. States that she also has urinary burning
Will get labs chest x-ray, give IV fluids and medicate with antiemetic.
Back into see patient. Explained that her blood work shows that her WBC are elevated. However, this may be due to medication given after chemo to increase her WBC's. However, this appears to be a cellulitis of the lower legs. Patient has small open
areas on the left. Will start patient on antibiotics and admit. Hospitalist notified.
Chronic conditions affecting care: Cancer
Acute Exacerbation and/or Progression of Chronic Illness: Cancer
*Radiology
Radiology exam reviewed: radiology read reviewed (Chest- Small pleural effusion prominent on the right. Progressed. Findings suggesting COPD. Stable. Lines and tubes as described above. )
*Pulse Oximetry
Patient hypoxic: no
*Critical Care Note
Total Time (30-74mins, 75-104mins- exclusive of procedures): Not Applicable
ED Attending Note
-
Portions of this chart may have been created with voice recognition software.� Occasional wrong word or��sound alike� substitutions may have occurred due to the inherent limitations of voice recognition software.
Discharge Plan
Departure
Patient Disposition: Admit
Date of Disposition: 10/30/23
Time of Disposition: 23:21
Admit to: Med/Surg
Presentation/result/management discussed w/ accepting MD/DO: Hospitalist
Patient with high blood pressure during this ER visit?: No
Condition: Good
Covid-19: Not Applicable
Discharge Problem:
Bilateral cellulitis of lower leg
Interventions
Interventions:
*Risk Screen - Suicide Last Done: 10/30/23 21:03
*General Assessment Last Done: 10/30/23 21:03
*Neglect/Abuse Screening Last Done: 10/30/23 21:03
ED- Fall Risk Assessment Last Done: 10/30/23 21:03
*ED COVID-19 Vaccine History Last Done: 10/30/23 21:03
GW-Eiijgm-Hrndddlyml Assessment Last Done: 10/30/23 21:45
[2023-10-30] MEDS: ROXICODONE 10 MG PO (21:37)
[2023-10-30 21:58] VITALS: BP 117/58
[2023-10-30 22:00] VITALS: BP 117/58
--- NOTE | 2023-10-30 22:15 | VATNOTE ---
CXR all is fine with port. WIll have another VAT RN attempt to access port and obtain labs.
[2023-10-30 22:23] LABS: % Basophils 0.2 % (0-2); % Eosinophils 0.3 % (0-6); % Immature Granulocytes 1.2 % (0-0.5); % Lymphocytes 5.5 % (20.5-51.1); % Monocytes 10.4 % (1.7-9.3); % Neutrophils 82.4 % (42.2-75.2); Absolute Eosinophils 0.1 10^3/uL (0-0.7); Absolute Immature Granulocytes 0.2 10^3/uL (0-0.05); Absolute Lymphocytes 0.9 10^3/uL (1.2-3.4); Absolute Monocytes 1.8 10^3/uL (0.1-0.6); Absolute Neutrophils 14.1 10^3/uL (1.4-6.5); Hematocrit 36.4 % (37.0-47.0); Hemoglobin 12.8 g/dL (12.0-16.0); Mean Corp Hgb Conc. 35.2 g/dL (33.0-37.0); Mean Corpuscular Hgb 30.3 pg (27.0-31.0); Mean Corpuscular Volume 86.1 fL (81.0-99.0); Mean Platelet Volume 10.2 fL (7.4-10.4); Nucleated Red Blood Cells % 0 %; Platelet Count 132 10^3/uL (130-400); Red Blood Cell Count 4.23 10^6/uL (4.20-5.40); Red Cell Dist. Width 14.6 % (11.5-14.5); White Blood Cell Count 17.1 10^3/uL (4.8-10.8)
[2023-10-30] MEDS: NSS 1000 IV (22:38)
[2023-10-30] MEDS: ZOFRAN 4 MG IV (22:39)
[2023-10-30 22:45] LABS: ALT (SGPT) 18 U/L (0-35); AST (SGOT) 27 U/L (14-36); Albumin 2.8 g/dl (3.5-5.0); Alkaline Phosphatase 170 U/L (38-126); Blood Urea Nitrogen 14 mg/dl (7-17); Calcium 8.2 mg/dl (8.4-10.2); Carbon Dioxide 28 mmol/L (22-30); Chloride 104 mmol/L (98-107); Estimated Creatinine Clearance 48 ml/min; Glucose 103 mg/dl (70-99); Lipase 61 U/L (23-300); Potassium 3.2 mmol/L (3.5-5.1); Sodium 136 mmol/L (135-145); Total Bilirubin 0.9 mg/dl (0.2-1.3); Total Protein 5.2 g/dl (6.3-8.2); eGFR > 60.00
[2023-10-30 23:00] VITALS: BP 120/60
[2023-10-30 23:03] LABS: Lactic Acid 1.7 mmol/L (0.7-2.0)
[2023-10-30] MEDS: REQUIP 2 MG PO (23:12)
[2023-10-30] MEDS: LEVAQUIN 100 IV (23:26)
--- NOTE | 2023-10-30 23:48 | HPS.HSE ---
Addendum entered and electronically signed by Margaux Juarez MD 10/30/23 23:51:
UA pending.
Original Note:
Family Physician
-
Family Physician: Jayson Ascencio
Chief Complaint
-
vomiting
History of Present Illness
83-year-old female past medical history of lung cancer metastases to bone and liver on chemotherapy, hypercholesterolemia, alcohol use disorder, restless leg syndrome, fibromyalgia, anxiety/depression, presenting with vomiting today. She had
chemotherapy last Sunday. She is eating very little today. She did complain of some abdominal pain. Vomiting is currently resolved.
Patient has been having lower extremity wounds for the past several months. She does started a new chemotherapy which she received the second dose this past Sunday. Since this chemotherapy she has had increased lower extremity redness and pain
with some slight swelling on the right lower extremity. No fevers or chills. She is also developed a rash on her lower extremities and upper extremities from the chemotherapy which is not itchy or painful.
She has a slight cough which is sometimes productive. She has urinary burning on and off. Denies any diarrhea.
She drinks alcohol occasionally.
Medical History
Past Medical History
Past Medical History: Reports Other ( lung cancer metastases to bone and liver on chemotherapy, hypercholesterolemia, alcohol use disorder, restless leg syndrome, fibromyalgia, anxiety/depression)
Past Surgical History: Reports Other ( Appendectomy, Cholecystectomy, Gynecological and Orthopedic (Bilateral hip replacement, Left knee replacement, Don foot surgery) Social History)
Social History
Tobacco: Non-smoker
Alcohol: Occasional
Drug: None
Family History
Family History: Not pertinent
Allergies / Home Medications
Allergies reflects when Allergies were last updated in [employer].
Home Medications with original date entered in [employer]
Allergy/Medication List:
Allergies
Allergy/AdvReac Type Severity Reaction Status Date / Time
bacitracin [From Polysporin] Allergy Rash Verified 10/30/23 21:00
cephalexin Allergy Unknown Verified 10/30/23 21:00
Cephalosporins Allergy Rash Verified 10/30/23 21:00
polymyxin B sulfate Allergy Rash Verified 10/30/23 21:00
[From Polysporin]
chromic sutures Allergy hematoma Uncoded 10/30/23 21:00
Home Medications
atorvastatin 40 mg tablet 40 mg PO HS High cholesterol 05/17/22
famotidine 40 mg tablet 40 mg PO HS Gastrointestinal issue 05/17/22
ferrous sulfate 325 mg (65 mg iron) tablet 325 mg PO DAILY Supplement 05/17/22
cholecalciferol (vitamin D3) 50 mcg (2,000 unit) capsule (Vitamin D3) 50 mcg PO DAILY 10/08/23
gabapentin 300 mg capsule 300 mg PO QPM 10/08/23
gabapentin 300 mg capsule 900 mg PO HS 10/08/23
magnesium 200 mg tablet 200 mg PO DAILY 10/08/23
oxycodone 10 mg tablet 10 mg PO Q4HPRN PRN moderate pain 10/08/23
ropinirole 1 mg tablet 1 mg PO BID@0800,1200 10/08/23
ropinirole 8 mg tablet,extended release 24 hr 8 mg PO HS 10/08/23
vitamins A,C,Z-kfxe-kgxqpv 2,148 mcg-113 mg-45 mg-17.4 mg tablet (PreserVision AREDS) 1 tab PO BID 10/08/23
acetaminophen 325 mg tablet 325 mg PO Q4HPRN PRN with oxycodone 10/30/23
aspirin 81 mg tablet,delayed release 81 mg PO DAILY 10/30/23
metoprolol succinate 25 mg tablet,extended release 24 hr 25 mg PO DAILY 10/30/23
potassium 1 tab PO DAILY 10/30/23
ropinirole 1 mg tablet 2 mg PO QPM 10/30/23
sertraline 50 mg tablet 50 mg PO DAILY 10/30/23
Review of Systems
-
History Source: Patient
A 12 point ROS was completed and negative except as noted: Yes
Constitutional: Reports No Symptoms
EENT: Reports No Symptoms
Respiratory: Reports No Symptoms
Cardiac: Reports No Symptoms
Abdomen/GI: Reports No Symptoms
: Reports No Symptoms
Musculoskeletal: Reports No Symptoms
Skin: Reports See HPI
Neurological: Reports No Symptoms
Endocrine: Reports No Symptoms
Hematologic/Lymphatic: Reports No Symptoms
Psych: Reports No Symptoms
Physical Exam
Vital Signs
Vital Signs
Temp Pulse Resp BP Pulse Ox
98.1 F 81 17 120/60 95
10/30/23 21:03 10/30/23 23:00 10/30/23 23:00 10/30/23 23:00 10/30/23 23:00
Physical Exam
General: Well Developed, Well Nourished and No Apparent Distress
HEENT: NormoCephalic, Moist mucous membranes and Atraumatic
Respiratory: Clear
Cardiac: S1/S2 and Regular Rhythm; No Murmur or Rub
GI: Soft, Non Tender, Non Distended and Normal Bowel Sounds; No Organomegaly
Rectal: Deferred by Provider
Musculoskeletal: No Clubbing, No Cyanosis and No Edema
Skin: Other (lower extremity erythema, wounds, rash upper and lower extrmities ); No Rash
Neuro: Nonfocal/grossly intact
Laboratory Results
-
10/30/23 22:13
10/30/23 22:13
Laboratory Results
Lactic Acid 1.7 mmol/L (0.7-2.0) 10/30/23 22:13
Total Bilirubin 0.9 mg/dl (0.2-1.3) 10/30/23 22:13
AST 27 U/L (14-36) 10/30/23 22:13
ALT 18 U/L (0-35) 10/30/23 22:13
Alkaline Phosphatase 170 U/L (38-126) H 10/30/23 22:13
Lipase 61 U/L (23-300) 10/30/23 22:13
Data Reviewed
-
Lab Data: Labs Reviewed by me
Old Records: Reviewed
Impression/Plan
-
IMPRESSION:
PLAN:
# Bilateral lower extremity cellulitis/wounds
-Leukocytosis
-IV fluids given
-Wound care
-Blood culture pending
-Levaquin given in ER, switch to aztreonam given allergies
# Chemotherapy rash of upper extremities/lower extremities
-Hydrocortisone cream
# Resolved vomiting secondary to cellulitis/related to chemotherapy
-Zofran as needed
# Cough
-Chest x-ray shows small pleural effusion prominent on the right, progressed
# Hypokalemia secondary to vomiting
-Replete potassium
Lung cancer with metastases to bone/liver on chemotherapy
-On chemotherapy
Hypercholesterolemia
-Continue statin
Alcohol use disorder
Restless leg syndrome
-Continue ropinirole
Fibromyalgia
-Continue gabapentin
Anxiety/depression
-Continue sertraline
Obesity
Full code
DVT prophylaxis�heparin
Regular diet
--- NOTE | 2023-10-30 23:55 | VATNOTE ---
FOLLOW UP VAT ASSESSMENT OF R SUBQ PRT. PRT FLUSHES WELL AND HAS A GOOD BLOOD RETURN. NO NEED FOR CATHFLO INTERVENTION AT THIS TIME. IVF NOW INFUSING VIA R SUBQ PORT. PCN AWARE OF CURRENT SITUATION AND WILL RETURN CATH KATHARINE TO PHARMACY. VAT TO FOLLOW
PT BEING ADMITTED TO IN PATIENT STATUS.
[2023-10-31] VITALS: BP 114/55
[2023-10-31] MEDS: KCL 40 MEQ PO
[2023-10-31] MEDS: ROXICODONE 10 MG PO (01:40)
[2023-10-31 03:15] LABS: Urine Albumin Negative (Neg - Trace); Urine Bilirubin Negative (Negative); Urine Character Clear (Clear); Urine Color Yellow; Urine Glucose Negative (Negative); Urine Ketone 2+ (Negative); Urine Leukocyte 1+ (Negative); Urine Nitrite Negative (Negative); Urine Occult Blood Trace (Negative); Urine Urobilinogen Negative (Neg - 1+)
--- NOTE | 2023-10-31 03:41 | PTCARENOTE ---
report given to Ruba HANCOCK
[2023-10-31 05:41] LABS: Urine Mucus Many; Urine Squamous Cell >30 /LPF (Few); Urine Urothelial Cell >30 /LPF (FEW)
[2023-10-31 05:43] LABS: Urine Bacteria Moderate (Negative); Urine White Cell 80-90 /HPF (0-5)
--- NOTE | 2023-10-31 06:12 | W.PN.UPDATE ---
Update Note
Progress Note Update
Notified by RN that pt would like to go home (AMA)
PT has hx of RLS on high doses of requip outpatient. States she cannot tolerate being in bed ( there is nothing in orders stating she cannot get up). At home she would walk around to relieve RLS. Additional dose of requip ordered to help. but pt
would like to go home still.
PT states she came in with n/V post chemo wed but is currently no longer n/v. I explained she was admitted for cellulits, and she tell me this is an ongoing issue.
Risks of leaving AMA explained. AMA paperwork signed.
PT awaiting getting in touch with a family member.
Asked RN to leave port accessed until ride obtained.
[2023-10-31] MEDS: NEURONTIN 900 MG PO (06:20)
[2023-10-31] MEDS: STERILE WATER FOR INJECTION 10 ML IV (06:21)
[2023-10-31] MEDS: AZACTAM 1000 MG IV (06:21)
[2023-10-31] MEDS: REQUIP 1 MG PO (06:21)
[2023-10-31 06:45] VITALS: BP 109/65
--- NOTE | 2023-10-31 06:49 | VATNOTE ---
PT LEAVING AMA. R SUBQ PORT FLUSHED WITH NSS AND 500 UNITS OF HEPARIN AND DEACCESSED.
--- NOTE | 2023-11-05 22:31 | W.DCSUMMARY ---
Discharge Summary
Discharge Data
Date of Admission: 10/30/23
Date of Discharge: 10/31/23
-
Pending Results: No
Hospital Course
This was a 83-year-old female past medical history of lung cancer metastases to bone and liver on chemotherapy, hypercholesterolemia, alcohol use disorder, restless leg syndrome, fibromyalgia, anxiety/depression, presented with poor p.o. intake,
abdominal pain and resolved vomiting. She also was having increased lower extremity redness and pain and swelling since chemotherapy the past week. She was treated for cellulitis with aztreonam, however later in the night patient felt better and
decided to leave against medical advice.
Discharge Plan
-
Patient Disposition: Against Medical Advice
Diet: No restrictions
Activity: No restrictions
Prescriptions:
No Action
atorvastatin 40 mg tablet
40 mg PO HS
famotidine 40 mg tablet
40 mg PO HS
ferrous sulfate 325 mg (65 mg iron) tablet
325 mg PO DAILY
ropinirole 1 mg Tablet
1 mg PO BID@0800,1200
gabapentin 300 mg Capsule
300 mg PO QPM
gabapentin 300 mg Capsule
900 mg PO HS
magnesium 200 mg Tablet
200 mg PO DAILY
oxycodone 10 mg Tablet
10 mg PO Q4HPRN PRN (Reason: moderate pain)
Patient Comments:
10/30/2023: last filled 10/02/23, 90 tabs for 15 days from [facility][id number]
ropinirole 8 mg Tablet Extended Release 24 Hr
8 mg PO HS
cholecalciferol (vitamin D3) [Vitamin D3] 50 mcg (2,000 unit) Capsule
50 mcg PO DAILY
PreserVision AREDS 2,148 mcg-113 mg-45 mg-17.4mg Tablet
1 tab PO BID
acetaminophen 325 mg Tablet
325 mg PO Q4HPRN PRN (Reason: with oxycodone)
ropinirole 1 mg tablet
2 mg PO QPM
aspirin 81 mg Tablet,Delayed Release (Dr/Ec)
81 mg PO DAILY
metoprolol succinate 25 mg tablet extended release 24 hr
25 mg PO DAILY
sertraline 50 mg tablet
50 mg PO DAILY
potassium
1 tab PO DAILY
Discharge Date and Time
Discharge Date/Time: 10/31/23 07:06
Print Language: GREENLANDIC
== END 2023-10-31 07:06 | disposition left against medical advice (07) | DRG 603 ==
LOC: ED 23:43
PROVIDERS: Clinical Nurse Specialist Family Health; Emergency Medicine; ADMITTING PHYSICIAN Hospitalist; ATTENDING PHYSICIAN Hospitalist; EMERGENCY PHYSICIAN Emergency Medicine; FAMILY PHYSICIAN Internal Medicine
DX: L03.115 Cellulitis of right lower limb (principal); C79.51 Secondary malignant neoplasm of bone; C34.90 Malignant neoplasm of unspecified part of unspecified bronchus or lung; C78.7 Secondary malignant neoplasm of liver and intrahepatic bile duct; L03.116 Cellulitis of left lower limb; G25.81 Restless legs syndrome; F32.A Depression, unspecified; E66.9 Obesity, unspecified; L27.1 Localized skin eruption due to drugs and medicaments taken internally; T45.1X5A Adverse effect of antineoplastic and immunosuppressive drugs, initial encounter; E87.6 Hypokalemia; R11.2 Nausea with vomiting, unspecified; E78.00 Pure hypercholesterolemia, unspecified; F10.90 Alcohol use, unspecified, uncomplicated; M79.7 Fibromyalgia; F41.9 Anxiety disorder, unspecified; Z68.25 Body mass index [BMI] 25.0-25.9, adult; Z79.82 Long term (current) use of aspirin; Z79.899 Other long term (current) drug therapy; Z88.1 Allergy status to other antibiotic agents; Z88.2 Allergy status to sulfonamides; Z90.49 Acquired absence of other specified parts of digestive tract; Z90.89 Acquired absence of other organs; Z96.643 Presence of artificial hip joint, bilateral; Z96.652 Presence of left artificial knee joint
CPT/HCPCS: 71046; 80053; 81003; 81015; 83605; 83690; 85025; 87040; 87086; 93005; J2997

== ENCOUNTER 2023-11-08 12:34 | Emergency (ER) | payer OTHER, SELFPAY ==
[2023-11-08 12:38] VITALS: BP 142/76
[2023-11-08 13:06] VITALS: BP 116/67
[2023-11-08] MEDS: PROTONIX IV 40 MG IV (13:32)
[2023-11-08] MEDS: NSS 500 IV (13:32)
[2023-11-08 13:39] LABS: Hematocrit 36.9 % (37.0-47.0); Hemoglobin 12.7 g/dL (12.0-16.0); Mean Corp Hgb Conc. 34.4 g/dL (33.0-37.0); Mean Corpuscular Hgb 30.6 pg (27.0-31.0); Mean Corpuscular Volume 88.9 fL (81.0-99.0); Mean Platelet Volume 10.4 fL (7.4-10.4); Platelet Count 136 10^3/uL (130-400); Red Blood Cell Count 4.15 10^6/uL (4.20-5.40); Red Cell Dist. Width 15.9 % (11.5-14.5); White Blood Cell Count 15.4 10^3/uL (4.8-10.8)
[2023-11-08 13:44] LABS: ALT (SGPT) 17 U/L (0-35); AST (SGOT) 22 U/L (14-36); Albumin 2.7 g/dl (3.5-5.0); Alkaline Phosphatase 155 U/L (38-126); Blood Urea Nitrogen 11 mg/dl (7-17); Calcium 7.8 mg/dl (8.4-10.2); Carbon Dioxide 30 mmol/L (22-30); Chloride 107 mmol/L (98-107); Glucose 100 mg/dl (70-99); Lipase 23 U/L (23-300); Potassium 3.4 mmol/L (3.5-5.1); Sodium 139 mmol/L (135-145); Total Bilirubin 0.6 mg/dl (0.2-1.3); eGFR > 60.00
--- NOTE | 2023-11-08 13:48 | PHANOTE ---
med rec corine(11/08/23)- patient states due to vomiting and nausea, she has only been taking her ropinirole, oxycodone, and gabapentin. All other medications were last taken without vomiting around 10 days ago.
[2023-11-08 14:43] LABS: % Basophils 0.8 % (0-2); % Eosinophils 0.1 % (0-6); % Immature Granulocytes 5.3 % (0-0.5); % Lymphocytes 5.7 % (20.5-51.1); % Monocytes 4.8 % (1.7-9.3); % Neutrophils 83.3 % (42.2-75.2); Absolute Basophils 0.1 10^3/uL (0-0.2); Absolute Immature Granulocytes 0.8 10^3/uL (0-0.05); Absolute Lymphocytes 0.9 10^3/uL (1.2-3.4); Absolute Monocytes 0.7 10^3/uL (0.1-0.6); Absolute Neutrophils 12.9 10^3/uL (1.4-6.5); Nucleated Red Blood Cells % 0 %
[2023-11-08 14:48] LABS: Urine Albumin Trace (Neg - Trace); Urine Bilirubin 1+ (Negative); Urine Character Clear (Clear); Urine Color Yellow; Urine Glucose Negative (Negative); Urine Ketone 3+ (Negative); Urine Leukocyte 1+ (Negative); Urine Nitrite Negative (Negative); Urine Occult Blood Trace (Negative); Urine Specific Gravity 1.015 (<1.030); Urine Urobilinogen Negative (Neg - 1+); Urine pH 6.5 (5.0-9.0)
[2023-11-08 15:09] LABS: Urine Squamous Cell >30 /LPF (Few); Urine Urothelial Cell 0-2 /LPF (FEW)
[2023-11-08 15:10] LABS: Urine Bacteria Moderate (Negative); Urine White Cell 16-20 /HPF (0-5)
[2023-11-08 16:05] VITALS: BP 127/65
--- NOTE | 2023-11-08 17:55 | ED.GENMED ---
History of Present Illness
General
Chief Complaint: Abdominal Symptoms
Source: patient
Time Seen by Provider: 11/08/23 13:09
History of Present Illness
History of Present Illness:
This is an 83-year-old female who presents with persistent nausea and vomiting has been ongoing for weeks. The patient states that symptoms have just been persistent. Patient states she had attributed her nausea to chemo but has not had chemo in
about 6 weeks. She was recently hospitalized and treated for cellulitis. She states that her legs are relatively unchanged. No fevers. Continues to have redness. No abdominal pain. No diarrhea. No hematemesis. On arrival check she states she
feels relatively okay and is not terribly nauseous.
Past History
Past History
ED Past Medical History: Cancer (Lung cancer with mets to bone and liver), Hypercholesterolemia, Psychiatric (Alcohol abuse) and Other (Restless leg syndrome)
ED Past Surgical History: Appendectomy, Cholecystectomy, Gynecological and Orthopedic (Bilateral hip replacement, Left knee replacement, Don foot surgery)
Social History
Tobacco: Former smoker
Alcohol: Occasional
Drug: None
Personal:
Living: with family
Phy Exam
Physical Exam
Physical Exam:
CONSTITUTIONAL Patient alert and oriented to person, place and time. Well-appearing. Vital signs reviewed.
HEAD atraumatic, normocephalic.
EYES eyelids normal to inspection, Pupils equally round and reactive to light, Extraocular muscles intact, Conjunctiva normal, Sclera normal.
NECK normal range of motion, Trachea midline, no jugular venous distention.
RESPIRATORY CHEST No respiratory distress noted, Chest expansion equal, Bilateral breath sounds clear.
CARDIOVASCULAR regular rate and rhythm, Heart sounds normal.
ABDOMEN abdomen nontender, Bowel sounds normal. No distention.
BACK normal inspection, no obvious deformities
UPPER EXTREMITY range of motion normal, Motor strength normal, no cyanosis, no edema.
LOWER EXTREMITY range of motion normal, Motor strength normal, no cyanosis, no edema. Erythema to bilateral lower extremities with venous stasis changes.
NEURO Speech normal, No focal motor deficits, Freedom coma scale 15, Memory normal, Cranial Nerves intact to screening exam.
SKIN skin warm, dry, and normal in color.
PSYCHIATRIC patient oriented to person place and time, Normal affect.
Course
Orders/Labs/Results
Orders:
Orders
11/08/23 13:17
Complete Blood Count/With Diff Urgent
Comprehensive Metabolic Panel Urgent
Lipase Urgent
Urinalysis Reflex To Culture Urgent
Date Specimen was Collected: 11/08/23
Time Specimen was Collected: 13:15
Urine Microscopic Reflex Cult Urgent
Urine Culture Urgent
CARLOS Source: U
Specimen Description:
Date Specimen was Collected: 11/08/23
Time Specimen was Collected: 13:15
11/08/23 13:25
0.9% Sodium Chloride 500 ml [Nss] 500 ml IV BOLUS
Pantoprazole [Protonix IV] 40 mg IV NOW STA
11/08/23 14:40
CT Head W/o Iv Contrast Urgent
Comment:
Reason For Exam: persistent n/v, h/o lung ca with mets
11/08/23 14:41
CT Abd/pelvis W Iv Cont Urgent
Comment:
Reason For Exam: persistent n/v, h/o lung ca with mets
11/08/23 17:52
Fosfomycin [Monurol] 3 gm PO ONCE ONE
Abnormal Lab Results
11/08/23
13:17
WBC 15.4 H 10^3/uL
(4.8-10.8)
RBC 4.15 L 10^6/uL
(4.20-5.40)
Hct 36.9 L %
(37.0-47.0)
RDW 15.9 H %
(11.5-14.5)
Abs Immat Gran (auto) 0.8 H 10^3/uL
(0-0.05)
Absolute Neuts (auto) 12.9 H 10^3/uL
(1.4-6.5)
Absolute Lymphs (auto) 0.9 L 10^3/uL
(1.2-3.4)
Absolute Monos (auto) 0.7 H 10^3/uL
(0.1-0.6)
Immature Gran % 5.3 H %
(0-0.5)
Neutrophils % 83.3 H %
(42.2-75.2)
Lymphocytes % 5.7 L %
(20.5-51.1)
Potassium 3.4 L mmol/L
(3.5-5.1)
Creatinine 0.5 L mg/dL
(0.6-1.0)
Glucose 100 H mg/dl
(70-99)
Calcium 7.8 L mg/dl
(8.4-10.2)
Alkaline Phosphatase 155 H U/L
(38-126)
Total Protein 5.0 L g/dl
(6.3-8.2)
Albumin 2.7 L g/dl
(3.5-5.0)
Urine Ketones 3+ A
(Negative)
Ur Occult Blood Reflex Trace A
(Negative)
Urine Bilirubin 1+ A
(Negative)
Leukocyte Esterase Rfl 1+ A
(Negative)
Urine RBC 3-6 A /HPF
(0-2)
Urine WBC (Reflex) 16-20 A /HPF
(0-5)
Urine Bacteria (Reflex) Moderate A
(Negative)
11/08/23 13:17
11/08/23 13:17
Vital Signs
Initial and Last Documented VS:
Initial Vital Signs
Temp Pulse Resp BP Pulse Ox
98.3 F 92 16 142/76 98
11/08/23 12:38 11/08/23 12:38 11/08/23 12:38 11/08/23 12:38 11/08/23 12:38
Last Documented Vital Signs
Temp Pulse Resp BP Pulse Ox
98.4 F 71 16 133/67 99
11/08/23 18:00 11/08/23 18:00 11/08/23 18:00 11/08/23 18:00 11/08/23 18:00
MDM/Problems Addressed
MDM/Problems Addressed:
Intractable nausea
Chronic conditions affecting care: Other (Metastatic lung cancer)
*Pulse Oximetry
Patient hypoxic: no
*Critical Care Note
Total Time (30-74mins, 75-104mins- exclusive of procedures): Not Applicable
Data Reviewed
Review of Other/Old Records Reveals: Discharge Summary (Recent discharge summary reviewed. Patient left against medical vice due to restless leg syndrome)
Prescriptions/Medications Considered But Not Given:
Considered vancomycin and treatment for cellulitis but since there has been no changes at all continue outpatient management
Patient Management
Escalation/DeEscalation of care consider admission/obs:
Patient really is not nauseous on my evaluation. She would rather outpatient management as she has difficulty with her restless leg while in the hospital. I think it is reasonable to treat her urine. Recommend close outpatient follow-up.
Leukocytosis noted but improved from recent admission.
ED Attending Note
-
Portions of this chart may have been created with voice recognition software.� Occasional wrong word or��sound alike� substitutions may have occurred due to the inherent limitations of voice recognition software.
Discharge Plan
Departure
Patient Disposition: Home (Routine Discharge)
Date of Disposition: 11/08/23
Time of Disposition: 17:58
Patient with high blood pressure during this ER visit?: No
Discharge Problem:
Nausea, Acute UTI
Instructions: Clear Liquid Diet, Urinary Tract Infection, Adult ED, Acute Nausea and Vomiting
Prescriptions:
New
ondansetron 4 mg tablet,disintegrating
4 mg PO TIDPRN PRN (Reason: nausea/vomiting) Qty: 20 0RF
No Action
atorvastatin 40 mg tablet
40 mg PO HS
famotidine 40 mg tablet
40 mg PO HS
ferrous sulfate 325 mg (65 mg iron) tablet
325 mg PO DAILY
ropinirole 1 mg Tablet
1 mg PO QID
gabapentin 300 mg Capsule
300 mg PO BID
gabapentin 300 mg Capsule
900 mg PO HS
magnesium 200 mg Tablet
200 mg PO DAILY
oxycodone 10 mg Tablet
10 mg PO Q4HPRN PRN (Reason: moderate pain)
ropinirole 8 mg Tablet Extended Release 24 Hr
8 mg PO HS
cholecalciferol (vitamin D3) [Vitamin D3] 50 mcg (2,000 unit) Capsule
50 mcg PO DAILY
PreserVision AREDS 2,148 mcg-113 mg-45 mg-17.4mg Tablet
1 tab PO BID
aspirin 81 mg Tablet,Delayed Release (Dr/Ec)
81 mg PO DAILY
metoprolol succinate 25 mg tablet extended release 24 hr
25 mg PO DAILY
sertraline 50 mg tablet
50 mg PO DAILY
doxycycline hyclate 100 mg Capsule
100 mg PO BID
Patient Comments:
11/08/23: filled 11/01/23, to take 1 capsule twice a day for 7 days. Tried to take yesterday, but subsequently vomited.
clindamycin phosphate 1 % Lotion
1 applic TOPICAL BID
Referrals:
Jayson Ascencio MD [Family Provider] -
Activity Restrictions/Additional Instructions:
Please drink plenty fluids and advance diet slowly. Please see your doctor in the next 3 to 5 days for follow-up and reevaluation. Return visit for intractable vomiting, weakness, passing out episode or any other concerns.
Interventions
Interventions:
*Risk Screen - Suicide Last Done: 11/08/23 13:24
*General Assessment Last Done: 11/08/23 13:24
*Neglect/Abuse Screening Last Done: 11/08/23 13:24
ED- Fall Risk Assessment Last Done: 11/08/23 13:24
*Nursing Disposition Last Done: 11/08/23 18:03
UE-Kuattu-Swybitsyzz Assessment Last Done: 11/08/23 13:24
Discharge Date and Time
Print Language: INDONESIAN
[2023-11-08 18:00] VITALS: BP 133/67
[2023-11-08] MEDS: MONUROL 3 GM PO (18:13)
== END 2023-11-08 18:15 | disposition home or self-care (01) ==
LOC: EMR 12:34
PROVIDERS: EMERGENCY PHYSICIAN Emergency Medicine; FAMILY PHYSICIAN Internal Medicine
DX: R11.2 Nausea with vomiting, unspecified (principal); N39.0 Urinary tract infection, site not specified; Z87.891 Personal history of nicotine dependence
CPT/HCPCS: 99285; 96374; 70450; 74177; 80053; 81003; 81015; 83690; 85025; 87086; Q9967

== ENCOUNTER 2023-11-13 13:34 | Outpatient (RCR) | payer OTHER, SELFPAY ==
[2023-11-13 10:35] LABS: % Basophils 0.6 % (0-2); % Eosinophils 0.5 % (0-6); % Immature Granulocytes 1.2 % (0-0.5); % Lymphocytes 9.5 % (20.5-51.1); % Monocytes 7.8 % (1.7-9.3); % Neutrophils 80.4 % (42.2-75.2); Absolute Basophils 0.1 10^3/uL (0-0.2); Absolute Eosinophils 0.1 10^3/uL (0-0.7); Absolute Immature Granulocytes 0.1 10^3/uL (0-0.05); Absolute Lymphocytes 0.9 10^3/uL (1.2-3.4); Absolute Monocytes 0.7 10^3/uL (0.1-0.6); Absolute Neutrophils 7.5 10^3/uL (1.4-6.5); Hemoglobin 12.6 g/dL (12.0-16.0); Mean Corp Hgb Conc. 34.1 g/dL (33.0-37.0); Mean Corpuscular Hgb 30.5 pg (27.0-31.0); Mean Corpuscular Volume 89.6 fL (81.0-99.0); Platelet Count 255 10^3/uL (130-400); Red Blood Cell Count 4.13 10^6/uL (4.20-5.40); Red Cell Dist. Width 15.8 % (11.5-14.5); White Blood Cell Count 9.4 10^3/uL (4.8-10.8)
[2023-11-13 11:15] LABS: ALT (SGPT) 17 U/L (0-35); AST (SGOT) 23 U/L (14-36); Albumin 3.2 g/dl (3.5-5.0); Alkaline Phosphatase 134 U/L (38-126); Blood Urea Nitrogen 15 mg/dl (7-17); Calcium 8.9 mg/dl (8.4-10.2); Carbon Dioxide 32 mmol/L (22-30); Chloride 101 mmol/L (98-107); Glucose 99 mg/dl (70-99); Iron 57 ug/dl (37-170); Potassium 3.3 mmol/L (3.5-5.1); Sodium 139 mmol/L (135-145); Total Bilirubin 0.6 mg/dl (0.2-1.3); Total Protein 5.5 g/dl (6.3-8.2); eGFR > 60.00
[2023-11-13 11:24] LABS: Percent Saturation 29 % (20-50); Total Iron Binding Capacity 193 ug/dl (265-497)
[2023-11-13 13:14] LABS: Folate 16.8 ng/ml (2.76-20); Vitamin B12 > 1000 pg/ml (239-931)
== END 2023-11-21 23:59 | disposition home or self-care (01) ==
LOC: OID 13:34
PROVIDERS: ATTENDING PHYSICIAN Internal Medicine Hematology & Oncology
DX: C34.11 Malignant neoplasm of upper lobe, right bronchus or lung (principal)
CPT/HCPCS: 36598; 72100; 80053; 82607; 82728; 82746; 83540; 83550; 85025

== ENCOUNTER → 2023-12-07 12:53 | Outpatient (REF) | payer OTHER, SELFPAY | LOC: PET 12:53 | PROVIDERS: ATTENDING PHYSICIAN Internal Medicine Hematology & Oncology | DX: C34.11 Malignant neoplasm of upper lobe, right bronchus or lung (principal) | CPT/HCPCS: 78815; A9552 ==

== ENCOUNTER → 2023-12-26 11:38 | Outpatient (REF) | payer OTHER, SELFPAY ==
[2023-12-26 12:46] LABS: % Eosinophils 1.2 % (0-6); % Immature Granulocytes 0.3 % (0-0.5); % Lymphocytes 7.8 % (20.5-51.1); % Monocytes 10.5 % (1.7-9.3); % Neutrophils 79.2 % (42.2-75.2); Absolute Basophils 0.1 10^3/uL (0-0.2); Absolute Eosinophils 0.1 10^3/uL (0-0.7); Absolute Lymphocytes 0.5 10^3/uL (1.2-3.4); Absolute Monocytes 0.7 10^3/uL (0.1-0.6); Absolute Neutrophils 5.4 10^3/uL (1.4-6.5); Hematocrit 30.1 % (37.0-47.0); Hemoglobin 10.1 g/dL (12.0-16.0); Mean Corp Hgb Conc. 33.6 g/dL (33.0-37.0); Mean Corpuscular Hgb 31.3 pg (27.0-31.0); Mean Corpuscular Volume 93.2 fL (81.0-99.0); Mean Platelet Volume 10.2 fL (7.4-10.4); Nucleated Red Blood Cells % 0 %; Platelet Count 184 10^3/uL (130-400); Red Blood Cell Count 3.23 10^6/uL (4.20-5.40); Red Cell Dist. Width 18.6 % (11.5-14.5); White Blood Cell Count 6.8 10^3/uL (4.8-10.8)
[2023-12-26 13:19] LABS: ALT (SGPT) 14 U/L (0-35); AST (SGOT) 25 U/L (14-36); Albumin 3.4 g/dl (3.5-5.0); Alkaline Phosphatase 93 U/L (38-126); Blood Urea Nitrogen 10 mg/dl (7-17); Calcium 8.7 mg/dl (8.4-10.2); Carbon Dioxide 27 mmol/L (22-30); Chloride 103 mmol/L (98-107); Glucose 128 mg/dl (70-99); Potassium 3.7 mmol/L (3.5-5.1); Sodium 142 mmol/L (135-145); Total Protein 5.8 g/dl (6.3-8.2); eGFR > 60.00
== END ==
LOC: REG 11:38
PROVIDERS: ATTENDING PHYSICIAN Internal Medicine Hematology & Oncology; FAMILY PHYSICIAN Internal Medicine
DX: C34.11 Malignant neoplasm of upper lobe, right bronchus or lung (principal); C78.7 Secondary malignant neoplasm of liver and intrahepatic bile duct; C79.51 Secondary malignant neoplasm of bone; G25.81 Restless legs syndrome
CPT/HCPCS: 36415; 80053; 85025

== ENCOUNTER → 2024-01-16 12:45 | Outpatient (REF) | payer OTHER, SELFPAY ==
[2024-01-16 14:57] LABS: % Immature Granulocytes 1.6 % (0-0.5); % Lymphocytes 11.8 % (20.5-51.1); % Monocytes 7.9 % (1.7-9.3); % Neutrophils 76.7 % (42.2-75.2); Absolute Basophils 0.1 10^3/uL (0-0.2); Absolute Eosinophils 0.1 10^3/uL (0-0.7); Absolute Immature Granulocytes 0.1 10^3/uL (0-0.05); Absolute Lymphocytes 0.8 10^3/uL (1.2-3.4); Absolute Monocytes 0.6 10^3/uL (0.1-0.6); Absolute Neutrophils 5.3 10^3/uL (1.4-6.5); Hematocrit 30.7 % (37.0-47.0); Hemoglobin 10.3 g/dL (12.0-16.0); Mean Corp Hgb Conc. 33.6 g/dL (33.0-37.0); Mean Corpuscular Hgb 31.2 pg (27.0-31.0); Mean Platelet Volume 9.6 fL (7.4-10.4); Nucleated Red Blood Cells % 0 %; Platelet Count 328 10^3/uL (130-400); Red Cell Dist. Width 18.2 % (11.5-14.5); White Blood Cell Count 6.9 10^3/uL (4.8-10.8)
[2024-01-16 15:20] LABS: ALT (SGPT) 15 U/L (0-35); AST (SGOT) 22 U/L (14-36); Albumin 3.3 g/dl (3.5-5.0); Alkaline Phosphatase 99 U/L (38-126); Blood Urea Nitrogen 6 mg/dl (7-17); Calcium 8.7 mg/dl (8.4-10.2); Carbon Dioxide 29 mmol/L (22-30); Chloride 105 mmol/L (98-107); Glucose 94 mg/dl (70-99); Potassium 3.8 mmol/L (3.5-5.1); Sodium 144 mmol/L (135-145); Total Bilirubin 0.6 mg/dl (0.2-1.3); Total Protein 5.6 g/dl (6.3-8.2); eGFR > 60.00
== END ==
LOC: REG 12:45
PROVIDERS: ATTENDING PHYSICIAN Internal Medicine Hematology & Oncology; FAMILY PHYSICIAN Internal Medicine
DX: C34.11 Malignant neoplasm of upper lobe, right bronchus or lung (principal); C78.7 Secondary malignant neoplasm of liver and intrahepatic bile duct; C79.51 Secondary malignant neoplasm of bone; G25.81 Restless legs syndrome
CPT/HCPCS: 36415; 80053; 85025

== ENCOUNTER → 2024-01-25 10:29 | Outpatient (REF) | payer OTHER, SELFPAY | LOC: RAD 10:29 | PROVIDERS: ATTENDING PHYSICIAN Internal Medicine Hospice and Palliative Medicine; FAMILY PHYSICIAN Internal Medicine | DX: S32.000A Wedge compression fracture of unspecified lumbar vertebra, initial encounter for closed fracture (principal); C79.51 Secondary malignant neoplasm of bone | CPT/HCPCS: 72072; 72100 ==

== ENCOUNTER → 2024-01-30 15:33 | Outpatient (REF) | payer OTHER, SELFPAY ==
[2024-01-30 12:16] LABS: % Basophils 0.2 % (0-2); % Eosinophils 0.2 % (0-6); % Immature Granulocytes 15.3 % (0-0.5); % Lymphocytes 7.8 % (20.5-51.1); % Neutrophils 69.5 % (42.2-75.2); Absolute Immature Granulocytes 1.7 10^3/uL (0-0.05); Absolute Lymphocytes 0.9 10^3/uL (1.2-3.4); Absolute Monocytes 0.8 10^3/uL (0.1-0.6); Absolute Neutrophils 7.7 10^3/uL (1.4-6.5); Hematocrit 27.6 % (37.0-47.0); Hemoglobin 9.3 g/dL (12.0-16.0); Mean Corp Hgb Conc. 33.7 g/dL (33.0-37.0); Mean Corpuscular Volume 94.8 fL (81.0-99.0); Mean Platelet Volume 10.5 fL (7.4-10.4); Platelet Count 76 10^3/uL (130-400); Red Blood Cell Count 2.91 10^6/uL (4.20-5.40); Red Cell Dist. Width 16.6 % (11.5-14.5)
[2024-01-30 12:42] LABS: ALT (SGPT) 19 U/L (0-35); AST (SGOT) 25 U/L (14-36); Albumin 3.6 g/dl (3.5-5.0); Alkaline Phosphatase 132 U/L (38-126); Blood Urea Nitrogen 7 mg/dl (7-17); Calcium 8.8 mg/dl (8.4-10.2); Carbon Dioxide 27 mmol/L (22-30); Chloride 102 mmol/L (98-107); Glucose 112 mg/dl (70-99); Magnesium 1.6 mg/dl (1.6-2.3); Potassium 3.3 mmol/L (3.5-5.1); Sodium 142 mmol/L (135-145); Total Bilirubin 0.7 mg/dl (0.2-1.3); Total Protein 5.8 g/dl (6.3-8.2); eGFR > 60.00
== END ==
LOC: OIDL 15:33
PROVIDERS: ATTENDING PHYSICIAN Internal Medicine Hematology & Oncology
DX: C34.11 Malignant neoplasm of upper lobe, right bronchus or lung (principal); C78.7 Secondary malignant neoplasm of liver and intrahepatic bile duct; C79.51 Secondary malignant neoplasm of bone; G25.81 Restless legs syndrome
CPT/HCPCS: 80053; 83735; 85025

== ENCOUNTER → 2024-02-06 10:50 | Outpatient (REF) | payer OTHER, SELFPAY | LOC: RAD 10:50 | PROVIDERS: ATTENDING PHYSICIAN Internal Medicine; OTHER PHYSICIAN Internal Medicine Hematology & Oncology | DX: R29.898 Other symptoms and signs involving the musculoskeletal system (principal); C34.90 Malignant neoplasm of unspecified part of unspecified bronchus or lung | CPT/HCPCS: 72040; 73030 ==

== ENCOUNTER → 2024-03-03 18:31 | Outpatient (REF) | payer OTHER, SELFPAY | LOC: MRI 18:31 | PROVIDERS: ATTENDING PHYSICIAN Internal Medicine Hematology & Oncology | DX: C34.11 Malignant neoplasm of upper lobe, right bronchus or lung (principal); C78.7 Secondary malignant neoplasm of liver and intrahepatic bile duct; C79.51 Secondary malignant neoplasm of bone; G25.81 Restless legs syndrome | CPT/HCPCS: 70553; A9575 ==

== ENCOUNTER → 2024-04-21 07:55 | Outpatient (REF) | payer OTHER, SELFPAY | LOC: PET 07:55 | PROVIDERS: ATTENDING PHYSICIAN Internal Medicine Hematology & Oncology | DX: C34.11 Malignant neoplasm of upper lobe, right bronchus or lung (principal) | CPT/HCPCS: 78815; A9552 ==

== ENCOUNTER → 2024-05-06 11:35 | Outpatient (REF) | payer OTHER, SELFPAY ==
[2024-05-06 12:35] LABS: % Basophils 0.8 % (0-2); % Eosinophils 2.4 % (0-6); % Immature Granulocytes 0.3 % (0-0.5); % Neutrophils 67.5 % (42.2-75.2); Absolute Basophils 0.1 10^3/uL (0-0.2); Absolute Eosinophils 0.1 10^3/uL (0-0.7); Absolute Lymphocytes 1.1 10^3/uL (1.2-3.4); Absolute Monocytes 0.7 10^3/uL (0.1-0.6); Hematocrit 35.6 % (37.0-47.0); Hemoglobin 11.6 g/dL (12.0-16.0); Mean Corp Hgb Conc. 32.6 g/dL (33.0-37.0); Mean Corpuscular Hgb 30.8 pg (27.0-31.0); Mean Corpuscular Volume 94.4 fL (81.0-99.0); Mean Platelet Volume 9.3 fL (7.4-10.4); Nucleated Red Blood Cells % 0 %; Platelet Count 167 10^3/uL (130-400); Red Blood Cell Count 3.77 10^6/uL (4.20-5.40); Red Cell Dist. Width 14.2 % (11.5-14.5); White Blood Cell Count 5.9 10^3/uL (4.8-10.8)
[2024-05-06 13:43] LABS: ALT (SGPT) 14 U/L (0-35); AST (SGOT) 24 U/L (14-36); Albumin 3.7 g/dl (3.5-5.0); Alkaline Phosphatase 87 U/L (38-126); Blood Urea Nitrogen 16 mg/dl (7-17); Calcium 9.1 mg/dl (8.4-10.2); Carbon Dioxide 34 mmol/L (22-30); Chloride 102 mmol/L (98-107); Glucose 88 mg/dl (70-99); Potassium 4.2 mmol/L (3.5-5.1); Sodium 141 mmol/L (135-145); Total Bilirubin 0.5 mg/dl (0.2-1.3); Total Protein 6.2 g/dl (6.3-8.2); eGFR > 60.00
== END ==
LOC: REG 11:35
PROVIDERS: ATTENDING PHYSICIAN Internal Medicine Hematology & Oncology; FAMILY PHYSICIAN Internal Medicine; OTHER PHYSICIAN Nurse Practitioner Adult Health
DX: C34.11 Malignant neoplasm of upper lobe, right bronchus or lung (principal); C78.7 Secondary malignant neoplasm of liver and intrahepatic bile duct; C79.51 Secondary malignant neoplasm of bone; G25.81 Restless legs syndrome
CPT/HCPCS: 36415; 80053; 85025

== ENCOUNTER → 2024-05-25 08:00 | Outpatient (REF) | payer OTHER, SELFPAY | LOC: PAVMRI 08:00 | PROVIDERS: ATTENDING PHYSICIAN Internal Medicine Hematology & Oncology | DX: C34.11 Malignant neoplasm of upper lobe, right bronchus or lung (principal); C78.7 Secondary malignant neoplasm of liver and intrahepatic bile duct; C79.51 Secondary malignant neoplasm of bone; G25.81 Restless legs syndrome | CPT/HCPCS: 72157; A9575 ==

== ENCOUNTER → 2024-05-26 11:23 | Outpatient (REF) | payer OTHER, SELFPAY ==
[2024-05-26 12:22] LABS: % Basophils 0.3 % (0-2); % Eosinophils 0.7 % (0-6); % Immature Granulocytes 0.5 % (0-0.5); % Lymphocytes 9.9 % (20.5-51.1); % Monocytes 8.1 % (1.7-9.3); % Neutrophils 80.5 % (42.2-75.2); Absolute Eosinophils 0.1 10^3/uL (0-0.7); Absolute Lymphocytes 0.8 10^3/uL (1.2-3.4); Absolute Monocytes 0.6 10^3/uL (0.1-0.6); Absolute Neutrophils 6.2 10^3/uL (1.4-6.5); Hematocrit 33.3 % (37.0-47.0); Hemoglobin 10.9 g/dL (12.0-16.0); Mean Corp Hgb Conc. 32.7 g/dL (33.0-37.0); Mean Corpuscular Hgb 30.5 pg (27.0-31.0); Mean Corpuscular Volume 93.3 fL (81.0-99.0); Nucleated Red Blood Cells % 0 %; Platelet Count 208 10^3/uL (130-400); Red Blood Cell Count 3.57 10^6/uL (4.20-5.40); Red Cell Dist. Width 14.7 % (11.5-14.5); White Blood Cell Count 7.7 10^3/uL (4.8-10.8)
[2024-05-26 12:36] LABS: ALT (SGPT) 18 U/L (0-35); AST (SGOT) 30 U/L (14-36); Albumin 3.8 g/dl (3.5-5.0); Alkaline Phosphatase 100 U/L (38-126); Blood Urea Nitrogen 11 mg/dl (7-17); Calcium 8.8 mg/dl (8.4-10.2); Carbon Dioxide 32 mmol/L (22-30); Chloride 101 mmol/L (98-107); Glucose 91 mg/dl (70-99); Potassium 3.8 mmol/L (3.5-5.1); Sodium 139 mmol/L (135-145); Total Bilirubin 0.7 mg/dl (0.2-1.3); Total Protein 6.1 g/dl (6.3-8.2); eGFR > 60.00
== END ==
LOC: REG 11:23
PROVIDERS: ATTENDING PHYSICIAN Internal Medicine Hematology & Oncology; FAMILY PHYSICIAN Internal Medicine
DX: C34.11 Malignant neoplasm of upper lobe, right bronchus or lung (principal); C78.7 Secondary malignant neoplasm of liver and intrahepatic bile duct; C79.51 Secondary malignant neoplasm of bone; G25.81 Restless legs syndrome
CPT/HCPCS: 36415; 80053; 85025

== ENCOUNTER → 2024-06-09 11:53 | Outpatient (REF) | payer OTHER, SELFPAY ==
[2024-06-09 12:34] LABS: % Basophils 0.8 % (0-2); % Eosinophils 0.7 % (0-6); % Immature Granulocytes 0.6 % (0-0.5); % Lymphocytes 8.2 % (20.5-51.1); % Monocytes 5.3 % (1.7-9.3); % Neutrophils 84.4 % (42.2-75.2); Absolute Basophils 0.1 10^3/uL (0-0.2); Absolute Eosinophils 0.1 10^3/uL (0-0.7); Absolute Immature Granulocytes 0.1 10^3/uL (0-0.05); Absolute Lymphocytes 0.7 10^3/uL (1.2-3.4); Absolute Monocytes 0.5 10^3/uL (0.1-0.6); Absolute Neutrophils 7.4 10^3/uL (1.4-6.5); Hematocrit 37.3 % (37.0-47.0); Hemoglobin 12.2 g/dL (12.0-16.0); Mean Corp Hgb Conc. 32.7 g/dL (33.0-37.0); Mean Corpuscular Hgb 30.4 pg (27.0-31.0); Mean Platelet Volume 9.6 fL (7.4-10.4); Nucleated Red Blood Cells % 0 %; Platelet Count 186 10^3/uL (130-400); Red Blood Cell Count 4.01 10^6/uL (4.20-5.40); Red Cell Dist. Width 14.9 % (11.5-14.5); White Blood Cell Count 8.8 10^3/uL (4.8-10.8)
[2024-06-09 13:28] LABS: ALT (SGPT) 13 U/L (0-35); AST (SGOT) 26 U/L (14-36); Albumin 4.1 g/dl (3.5-5.0); Alkaline Phosphatase 105 U/L (38-126); Blood Urea Nitrogen 16 mg/dl (7-17); Calcium 9.4 mg/dl (8.4-10.2); Carbon Dioxide 31 mmol/L (22-30); Chloride 99 mmol/L (98-107); Glucose 106 mg/dl (70-99); Potassium 4.3 mmol/L (3.5-5.1); Sodium 139 mmol/L (135-145); Total Bilirubin 0.9 mg/dl (0.2-1.3); Total Protein 6.7 g/dl (6.3-8.2); eGFR > 60.00
== END ==
LOC: REG 11:53
PROVIDERS: ATTENDING PHYSICIAN Internal Medicine Hematology & Oncology; FAMILY PHYSICIAN Internal Medicine
DX: C34.11 Malignant neoplasm of upper lobe, right bronchus or lung (principal); C78.7 Secondary malignant neoplasm of liver and intrahepatic bile duct; C79.51 Secondary malignant neoplasm of bone; G25.81 Restless legs syndrome
CPT/HCPCS: 36415; 80053; 85025

== ENCOUNTER 2024-06-28 10:34 | Emergency (ER) | payer OTHER, SELFPAY ==
[2024-06-28 10:44] VITALS: BP 111/66
--- NOTE | 2024-06-28 11:52 | ED.GENMED ---
History of Present Illness
General
Chief Complaint: Back Pain
Source: patient and family
Time Seen by Provider: 06/28/24 11:38
History of Present Illness
History of Present Illness:
This patient is an 84-year-old female with a history of lung CA with mets to bone and liver, currently under the care of Dr. Johnson for pain management as well as a variety of other doctors. Her pain is typically in the 'T12' area and will radiate
around to the anterior abdomen and legs. At she notes that her usual pain medication has been increasingly ineffective over the last 24 to 36 hours. Of note, due to the morphine shortage, there was a recent change to her medications. She is now
taking 6 mg of hydromorphone every 6 hours and 40 mg of oxycodone every 12 hours. Patient admits to drinking fireball liquor to try and help her symptoms as well. She denies incontinence, numbness, tingling, fever, chills, chest pain, dyspnea, or
other complaints.
Past History
Past History
ED Past Medical History: Cancer (Lung cancer with mets to bone and liver), Hypercholesterolemia, Psychiatric (Alcohol abuse) and Other (Restless leg syndrome)
ED Past Surgical History: Appendectomy, Cholecystectomy, Gynecological and Orthopedic (Bilateral hip replacement, Left knee replacement, Don foot surgery)
Social History
Tobacco: Former smoker
Alcohol: Occasional
Drug: None
Personal:
Living: with family
Phy Exam
Physical Exam
Physical Exam:
GENERAL: Alert , in no apparent distress
EYE: pupils equal and round
NECK: Supple, no significant adenopathy.
ENT: o/p clr, mm dry
CARDIAC: Regular rate and rhythm .
LUNGS: Clear breath sounds bilaterally, no acute respiratory distress, no wheezes/rales/rhonchi
ABDOMEN: Soft, without focal tenderness, no r/g
NEUROLOGICAL: Alert and oriented, no focal neuro deficits
SKIN: Warm and dry, skin intact.
MUSCULOSKELETAL: No edema, well perfused.
PSYCH: Normal and appropriate interaction.
BACK: no ttp however obvious discomfort with movement, no edema/redness
Course
Orders/Labs/Results
Orders:
Orders
06/28/24 12:20
HYDROmorphone [Dilaudid] 8 mg PO NOW STA
Vital Signs
Initial and Last Documented VS:
Initial Vital Signs
Temp Pulse Resp BP Pulse Ox
97.8 F 66 16 111/ 94
06/28/24 10:44 06/28/24 10:44 06/28/24 10:44 06/28/24 10:44 06/28/24 10:44
Last Documented Vital Signs
Temp Pulse Resp BP Pulse Ox
97.8 F 66 16 111/ 94
06/28/24 10:44 06/28/24 10:44 06/28/24 10:44 06/28/24 10:44 06/28/24 10:44
*Critical Care Note
Total Time (30-74mins, 75-104mins- exclusive of procedures): Not Applicable
Update Note
Update Note:
Patient presents to the Emergency Department with increasing back pain
Number and Complexity of Problems Addressed at the Encounter
� Chronic conditions affecting care:
� Acute Exacerbation and/or Progression of Chronic Illness:
� Differential Diagnosis includes: But not limited to medication tolerance, worsening of underlying cancer, etc. etc.
Amount and/or Complexity of Data to be Reviewed and Analyzed
� I performed an independent evaluation of and my interpretation is:
EKG:
CT:
Xrays:
Laboratory Studies:
Other:
� Review of other/old records reveals:
� Clinical information was obtained by an independent historian:
� Prescriptions/Medications Considered but not given:
� Further testing considered but not performed:
Risk of Complications and/or Morbidity or Mortality of Patient Management
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 Also, with increasing doses of certain meds she is had confusion as per Dr. Johnson.
� Discussion with other providers (PCP, Hospitalists, Consultants, etc):
� Escalation of care including admission/observation vs risk of discharge considered: Case discussed with Dr. Johnson as she is her palliative care/pain management doctor. We reviewed medications that she is currently on, risks,
benefits, etc. Her recommendation is that we increase the hydromorphone to 8 mg every 6 hours. She has an appointment to see Dr. Johnson this week. Will discuss with family, including the importance of close observation.
ED Attending Note
-
Portions of this chart may have been created with voice recognition software.� Occasional wrong word or��sound alike� substitutions may have occurred due to the inherent limitations of voice recognition software.
Discharge Plan
Departure
Patient Disposition: Home (Routine Discharge)
Date of Disposition: 06/28/24
Time of Disposition: 12:22
Patient with high blood pressure during this ER visit?: No
Condition: Good
Discharge Problem:
Back pain
Instructions: Low Back Pain (DC)
Prescriptions:
No Action
atorvastatin 40 mg tablet
40 mg PO HS
famotidine 40 mg tablet
40 mg PO HS
ferrous sulfate 325 mg (65 mg iron) tablet
325 mg PO DAILY
ropinirole 1 mg Tablet
1 mg PO QID
gabapentin 300 mg Capsule
300 mg PO BID
gabapentin 300 mg Capsule
900 mg PO HS
magnesium 200 mg Tablet
200 mg PO DAILY
oxycodone 10 mg Tablet
10 mg PO Q4HPRN PRN (Reason: moderate pain)
ropinirole 8 mg Tablet Extended Release 24 Hr
8 mg PO HS
cholecalciferol (vitamin D3) [Vitamin D3] 50 mcg (2,000 unit) Capsule
50 mcg PO DAILY
PreserVision AREDS 2,148 mcg-113 mg-45 mg-17.4mg Tablet
1 tab PO BID
aspirin 81 mg Tablet,Delayed Release (Dr/Ec)
81 mg PO DAILY
metoprolol succinate 25 mg tablet extended release 24 hr
25 mg PO DAILY
sertraline 50 mg tablet
50 mg PO DAILY
doxycycline hyclate 100 mg Capsule
100 mg PO BID
Patient Comments:
11/08/23: filled 11/01/23, to take 1 capsule twice a day for 7 days. Tried to take yesterday, but subsequently vomited.
clindamycin phosphate 1 % Lotion
1 applic TOPICAL BID
ondansetron 4 mg tablet,disintegrating
4 mg PO TIDPRN PRN (Reason: nausea/vomiting) Qty: 20 0RF
Referrals:
Jayson Ascencio MD [Family Provider] - Follow up in 2-3 days
Activity Restrictions/Additional Instructions:
PER DR. JOHNSON RECOMMENDATION, YOU SHOULD INCREASE YOUR HYDROMORPHONE TO 8 MG INSTEAD OF 6 MG EVERY 6 HOURS. IF YOU DEVELOP DROWSINESS, NAUSEA, VOMITING, DIZZINESS, INCREASING OR NEW PAIN, OR OTHER WORRISOME SIGNS, PLEASE RETURN TO THE ER
IMMEDIATELY. DO NOT DRINK ALCOHOL WHILE TAKING THESE MEDICATIONS.
Interventions
Interventions:
*Risk Screen - Suicide Last Done: 06/28/24 10:58
*General Assessment Last Done: 06/28/24 10:58
*Neglect/Abuse Screening Last Done: 06/28/24 10:58
*ED- Fall Risk Assessment Last Done: 06/28/24 10:58
ED-Musculoskeletal Assessment Last Done: 06/28/24 10:58
Discharge Date and Time
Print Language: FAROESE
[2024-06-28 12:28] VITALS: BP 108/74
[2024-06-28] MEDS: DILAUDID 8 MG PO (12:35)
== END 2024-06-28 12:38 | disposition home or self-care (01) ==
LOC: EMR 10:34
PROVIDERS: EMERGENCY PHYSICIAN Emergency Medicine; FAMILY PHYSICIAN Internal Medicine
DX: M54.9 Dorsalgia, unspecified (principal); C34.90 Malignant neoplasm of unspecified part of unspecified bronchus or lung; C78.7 Secondary malignant neoplasm of liver and intrahepatic bile duct; C79.51 Secondary malignant neoplasm of bone; E78.00 Pure hypercholesterolemia, unspecified; Z87.891 Personal history of nicotine dependence; Z90.49 Acquired absence of other specified parts of digestive tract
CPT/HCPCS: 99283

== ENCOUNTER 2024-09-11 16:39 | Inpatient (IN) | payer OTHER, SELFPAY ==
[2024-09-11 14:55] VITALS: BP 144/85
--- NOTE | 2024-09-11 15:22 | ED.GENMED ---
History of Present Illness
General
Chief Complaint: Generalized Pain
Source: patient and family
Time Seen by Provider: 09/11/24 15:06
History of Present Illness
History of Present Illness:
84-year-old female presents emergency department intractable pain. She is currently on home hospice, being managed with multiple meds including Dilaudid, and continues with pain. Case discussed with the hospice nurse, Tammie Moy, as well as son
and [id number] who are at bedside. Patient has waxing and waning levels of normal cognition, does confirm that she has pain but has difficulty describing exactly where it is. History limited.
Past History
Past History
ED Past Medical History: Cancer (Lung cancer with mets to bone and liver), Hypercholesterolemia, Psychiatric (Alcohol abuse) and Other (Restless leg syndrome)
ED Past Surgical History: Appendectomy, Cholecystectomy, Gynecological and Orthopedic (Bilateral hip replacement, Left knee replacement, Don foot surgery)
Social History
Tobacco: Former smoker
Alcohol: Occasional
Drug: None
Personal:
Living: with family
Phy Exam
Physical Exam
Physical Exam:
GENERAL: Awake, appears somewhat uncomfortable
EYE: pupils equal and reactive
NECK: Supple, no significant adenopathy.
ENT: o/p clr, mm dry
CARDIAC: Regular rate and rhythm .
LUNGS: Clear breath sounds bilaterally, no acute respiratory distress, no wheezes/rales/rhonchi
ABDOMEN: Soft, mild nonspecific abdominal tenderness, no r/g
NEUROLOGICAL: Awake but does not answer all questions, speech clear
SKIN: Warm and dry, skin intact.
MUSCULOSKELETAL: No edema, well perfused.
PSYCH: Normal and appropriate interaction.
Course
Orders/Labs/Results
Orders:
Orders
09/11/24 Dinner
Regular
At Your Request: Non-Participating
Does patient need a safe tray?: No
09/11/24 15:21
HYDROmorphone [Dilaudid] 2 mg IV NOW STA
09/11/24 16:00
Admit/Transfer Patient As Directed
Co-Sign Provider:
Level of Care: Inpatient admission
Assign to:: Inpatient Hospice
Physician / Group: Dillon Downs
Diagnosis: metastatic lung cancer
Reason for Hospitalization: metastatic lung cancer
Expected length of stay greater than two midnights?: Yes
ELOS- Estimated Length of Stay in days: 3
I certify the patient meets the requirements for IP care: Yes
Code Status As Directed
Resuscitation Status: Do not resuscitate
Based on pt advanced directive or healthcare POA form: Yes
HYDROmorphone 50 MG/50 ML [Dilaudid] 50 mg in 50 ml IV PER PROTOCOL
HYDROmorphone [Dilaudid] See Protocol IV [id number] PRN
PRN Pain Medication Management As Directed
May give lesser potent ordered pain med per pt: Yes
preference::
Protocol:: Medication orders for pain may be administered in a
manner that supports deferring to patient preference
when the pt is:
- Requesting an ordered lesser potent pain medication.
Least to most potent pain medications are defined
as: acetaminophen < NSAID < tramadol < opioids
(morphine, oxycodone, hydromorphone).
- Requesting a lesser dose of the same medication IF
ORDERED.
- Requesting a less intrusive route of administration
if both routes are prescribed by the provider (PO <
IV).
09/11/24 16:01
DNR Bracelet Application ONCE
09/11/24 17:11
Acetaminophen [Tylenol/Feverall] 650 mg RECTAL Q4HPRN PRN
Acetaminophen [Tylenol] 650 mg PO Q4HPRN PRN
Bisacodyl [Dulcolax] 10 mg RECTAL DAILYPRN PRN
Haloperidol Lactate [Haldol Concentrate] 2 mg SL Q4HPRN PRN
Hyoscyamine Sulfate [Levsin Oral Drops] 0.125 mg SL Q4HPRN PRN
Lorazepam [Ativan] 0.5 mg PO Q2HPRN PRN
Ondansetron Injectable [Zofran] 4 mg IV Q6HPRN PRN
09/11/24 17:11
Case Management Consult ONCE
Case Management Consult: Hospice
Hospice: Evaluation and treat
VTE Contraindication Routine
VTE Mechanical Device Contraindication: Comfort Care mgmt
Pharmocologic Contraindication: Comfort Care mgmt
Activity As Directed
Activity Level: As Tolerated
Comfort Measures As Directed
Comment: Pain and Dyspnea assessment every 4 hours
End of Life Symptom Assessment Q4
Vital Signs As Directed
Frequency: Per unit guidelines
O2 Therapy [RESP] Routine
Titrate/Wean O2 to maintain O2 sat greater than (%): 93
Special Instructions: wean as tolerated
PRN for comfort
09/11/24 18:00
Dexamethasone Sod Phosphate [Decadron] 2 mg IV Q12H
Vital Signs
Initial and Last Documented VS:
Initial Vital Signs
Temp Pulse Resp BP Pulse Ox
97.7 F 81 16 144/85 96
09/11/24 14:55 09/11/24 14:55 09/11/24 14:55 09/11/24 14:55 09/11/24 14:55
Last Documented Vital Signs
Temp Pulse Resp BP Pulse Ox
100.8 F H 68 16 68/43 86
09/16/24 07:10 09/16/24 07:10 09/16/24 07:10 09/16/24 07:10 09/16/24 10:42
*Critical Care Note
Total Time (30-74mins, 75-104mins- exclusive of procedures): Not Applicable
Update Note
Update Note:
Patient presents to the Emergency Department with ____intractable pain
Number and Complexity of Problems Addressed at the Encounter
� Chronic conditions affecting care:
� Acute Exacerbation and/or Progression of Chronic Illness:
� Differential Diagnosis includes: But not limited to opioid tolerance, cancer extension, etc. etc.
Amount and/or Complexity of Data to be Reviewed and Analyzed
� I performed an independent evaluation of and my interpretation is:
EKG:
CT:
Xrays:
Laboratory Studies:
Other:
� Review of other/old records reveals:
� Clinical information was obtained by an independent historian: Hospice nurse, son, [id number]
� Prescriptions/Medications Considered but not given:
� Further testing considered but not performed:
Risk of Complications and/or Morbidity or Mortality of Patient Management
� Social determinants of health affecting care:
� Discussion with other providers (PCP, Hospitalists, Consultants, etc):
� Escalation of care including admission/observation vs risk of discharge considered: Case discussed with hospitalist Dr. Himanshu Neely for admission. Dilaudid drip ordered in consultation with pharmacy. Family updated.*
ED Attending Note
-
Portions of this chart may have been created with voice recognition software.� Occasional wrong word or��sound alike� substitutions may have occurred due to the inherent limitations of voice recognition software.
Discharge Plan
Departure
Patient Disposition: Admit
Date of Disposition: 09/11/24
Time of Disposition: 16:27
Presentation/result/management discussed w/ accepting MD/DO: Hospitalist
Condition: Fair
Discharge Problem:
Intractable pain
Interventions
Interventions:
*Risk Screen - Suicide Last Done: 09/11/24 14:58
*General Assessment Last Done: 09/11/24 14:58
*Neglect/Abuse Screening Last Done: 09/11/24 14:58
*ED- Fall Risk Assessment Last Done: 09/11/24 14:55
*ED COVID-19 Vaccine History Last Done: 09/11/24 14:55
*Nursing Disposition Last Done: 09/11/24 17:10
Discharge Date and Time
Discharge Date/Time: 09/11/24 17:10
--- NOTE | 2024-09-11 15:24 | HPS.HSE ---
Family Physician
-
Family Physician:
Chief Complaint
-
intractable pain
History of Present Illness
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
[facility] ED for evaluation of intractable pain. Patient is currently on home hospice. Pain being managed with Dilaudid but continues to be in pain. Patient with multiple medications for pain regimen and she reports she has been in pain since 299
without any relief. Patient states the pain is everywhere and unable to describe it.
Medical History
Past Medical History
Past Medical History: Reports Other
Additional Past Medical History:
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
hypercholesterolemia
alcohol use disorder
restless leg syndrome
fibromyalgia
anxiety/depression
Past Surgical History: Reports Other
Additional Past Surgical History:
Appendectomy
Cholecystectomy
Bilateral hip replacement
Left knee replacement
Don foot surgery
Social History
Tobacco: Non-smoker
Alcohol: Occasional
Drug: None
Living: With Family
Family History
Family History: Not pertinent
Allergies / Home Medications
Allergies reflects when Allergies were last updated in [employer].
Home Medications with original date entered in [employer]
Allergy/Medication List:
Allergies
Allergy/AdvReac Type Severity Reaction Status Date / Time
bacitracin [From Polysporin] Allergy Rash Verified 09/11/24 14:53
cephalexin Allergy pt unaware Verified 09/11/24 17:28
of this
allergy
Cephalosporins Allergy Rash Verified 09/11/24 17:28
polymyxin B sulfate Allergy Rash Verified 09/11/24 14:53
[From Polysporin]
chromic sutures Allergy hematoma Uncoded 09/11/24 14:53
Home Medications
atorvastatin 40 mg tablet 40 mg PO HS High cholesterol 05/17/22
famotidine 40 mg tablet 40 mg PO HS Gastrointestinal issue 05/17/22
ferrous sulfate 325 mg (65 mg iron) tablet 325 mg PO DAILY Supplement 05/17/22
cholecalciferol (vitamin D3) 50 mcg (2,000 unit) capsule (Vitamin D3) 50 mcg PO DAILY 10/08/23
gabapentin 300 mg capsule 300 mg PO BID@0800,1800 10/08/23
gabapentin 300 mg capsule 900 mg PO HS 10/08/23
magnesium 200 mg tablet 200 mg PO DAILY 10/08/23
oxycodone 10 mg tablet 10 mg PO Q4HPRN PRN moderate pain 10/08/23
ropinirole 1 mg tablet 1 mg PO QID 10/08/23
ropinirole 8 mg tablet,extended release 24 hr 8 mg PO HS 10/08/23
vitamins A,C,C-kmbl-xwvuiz 2,148 mcg-113 mg-45 mg-17.4 mg tablet (PreserVision AREDS) 1 tab PO BID 10/08/23
aspirin 81 mg tablet,delayed release 81 mg PO DAILY 10/30/23
metoprolol succinate 25 mg tablet,extended release 24 hr 25 mg PO DAILY 10/30/23
sertraline 50 mg tablet 50 mg PO DAILY 10/30/23
ondansetron 4 mg disintegrating tablet 4 mg PO TIDPRN PRN nausea/vomiting #20 tabs 11/08/23
Review of Systems
-
History Source: Patient
Constitutional: Reports Other (generalized pain )
Physical Exam
Vital Signs
Vital Signs
Temp Pulse Resp BP Pulse Ox
97.7 F 81 16 144/85 96
09/11/24 14:55 09/11/24 14:55 09/11/24 14:55 09/11/24 14:55 09/11/24 14:55
Physical Exam
General: Well Developed, Appears in Distress (moaning in pain ), Pain, Appears Chronically Ill and Cachectic
HEENT: NormoCephalic, Moist mucous membranes, Atraumatic, Nose Appears Normal and Ears Appear Normal
Respiratory: Clear
Cardiac: S1/S2 and Regular Rhythm
Breast: Deferred by me
GI: Soft, Non Tender, Non Distended and Normal Bowel Sounds
Rectal: Deferred by Provider
Genito-urinary: Deferred by me
Musculoskeletal: No Clubbing, No Cyanosis and No Edema
Skin: Warm and IV/Catheter Site (RCW port accessed )
Neuro: Awake, Alert and Nonfocal/grossly intact
Psych: Calm and Intact Judgment/Insight
Impression/Plan
-
IMPRESSION/PLAN:
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
- Admit to inpatient hospice services
- start IV Dilaudid gtt at step 2
- PRN Dilaudid for breakthrough pain
- start Decadron 2mg q12
- supportive care
#hypercholesterolemia
#alcohol use disorder
#restless leg syndrome
#fibromyalgia
#anxiety/depression
Code status: DNR
DVT prophylaxis: n/a
[2024-09-11] MEDS: DILAUDID 0.5 MG IV ×2 (15:44→18:06)
--- NOTE | 2024-09-11 15:50 | HOSPNOTE ---
Spoke with family and patient and discussed inpatient hospice. Patient will be started on IV drip of dilaudid for severe management. Patient will be seen daily by hospice nurse. Admissions was called and bed requested on [facility].
[2024-09-11] MEDS: DILAUDID 50 IV (16:01)
--- NOTE | 2024-09-11 16:10 | W.PN.UPDATE ---
Update Note
Progress Note Update
I saw and examined the patient.
The PLY SPLICER or PA's note was reviewed and I agree with the note.
Comment:
This note serves as an addendum to the H&P by private client advisor NOLVIA
Farrah Garcia
83F Home hospice HX metastatic CA lung to bone and liver, no longer on on chemotherapy, hypercholesterolemia, alcohol use disorder, restless leg syndrome, fibromyalgia, anxiety/depression seen at ER coming from home hospice with intractable pain.
For IP hospice service for intractable pain.
PE: Moaning and restless with acute pain
AP:
- IP hospice care admission
- No labs
- IP pain control with Dilaudid 0.5 mg /h gtt
- IV Decadron 2 mg q12h
- PRN meds appropriate for IP hopsice care
- DNR
- F/U with hospice care
Case reviewed with family at bed side and PLY SPLICER
[2024-09-11] MEDS: DECADRON 2 MG IV (17:50)
[2024-09-11] MEDS: NEURONTIN 300 MG PO (17:51)
[2024-09-11] MEDS: REQUIP 1 MG PO (17:51)
[2024-09-11 18:00] VITALS: BP 118/84
[2024-09-11 23:35] VITALS: BP 114/75
[2024-09-12] MEDS: REQUIP PO ×4 (01:07→21:12)
[2024-09-12] MEDS: ATIVAN 0.5 MG PO ×2 (01:55→09:37)
[2024-09-12] MEDS: DILAUDID 0.5 MG IV ×4 (02:08→09:36)
[2024-09-12] MEDS: HALDOL CONCENTRATE 2 MG SL (06:00)
[2024-09-12] MEDS: DECADRON 2 MG IV ×2 (06:01→17:09)
[2024-09-12] MEDS: NEURONTIN 300 MG PO (07:24)
[2024-09-12] MEDS: REQUIP 1 MG PO (07:24)
[2024-09-12] MEDS: ZOLOFT 50 MG PO (07:25)
[2024-09-12 07:31] VITALS: BP 125/85
--- NOTE | 2024-09-12 11:10 | CM ---
CM advised that patient is being placed on IP Hospice Care with Hospice on .
CM to follow for any status changes/updates.
--- NOTE | 2024-09-12 11:36 | HOSPNOTE ---
Patient is now getting 1mg of dilaudid. Patient still continues to complain of pain and has required IV PRN doses. Family was present during my visit. I explained that we will continue medicating for symptom management and the patient continues to
be inpatient appropriate for pain management requiring IV medications. Patient will be seen daily by hospice.
--- NOTE | 2024-09-12 11:57 | W.PN.HOSP.TC ---
Today's Communication/Plan
-
Comfort care medications
Assessment / Plan
Assessment / Plan
Physical exam:
General: Acutely on chronically ill. Cachectic.
Respiratory: Clear to Auscultation; Negative Wheezes, Rales or Rhonchi
Cardiac: Regular Rhythm and S1/S2
GI: Soft, Nontender and Nondistended
A/P:
83F Home hospice HX metastatic CA lung to bone and liver, no longer on on chemotherapy, hypercholesterolemia, alcohol use disorder, restless leg syndrome, fibromyalgia, anxiety/depression seen at ER coming from home hospice with intractable pain.
For IP hospice service for intractable pain.
Medical issues:
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
hypercholesterolemia
alcohol use disorder
restless leg syndrome
fibromyalgia
anxiety/depression
Plan:
Continue IV Dilaudid drip
Continue IV steroids, dexamethasone 2 mg every 12 hours
Change Ativan to IV
Continue gabapentin and ropinirole and give extra doses today.
Bowel regimen as needed
Continue Zoloft
Anticipated Discharge: > 48 hours
Subjective/Interval History
-
Date of Service: September 12, 2024
Complains of pain in the legs. Her overall pain also not optimal yet.
Objective Data
-
Vital Signs:
Vital Signs
Temp Pulse Resp BP Pulse Ox
97.8 F 103 16 125/85 96
09/12/24 07:31 09/12/24 07:31 09/12/24 07:31 09/12/24 07:31 09/12/24 07:31
[2024-09-12] MEDS: ATIVAN 1 MG IV (12:18)
[2024-09-12 19:39] VITALS: BP 113/81
[2024-09-13] MEDS: DECADRON 2 MG IV (05:55)
[2024-09-13 07:00] VITALS: BP 135/86
[2024-09-13] MEDS: LEVSIN ORAL DROPS 0.125 MG SL (09:21)
[2024-09-13] MEDS: DILAUDID 1 MG IV ×3 (09:45→12:40)
[2024-09-13] MEDS: REQUIP PO ×4 (10:10→21:34)
[2024-09-13] MEDS: ZOLOFT PO (10:10)
--- NOTE | 2024-09-13 10:44 | CHAP ---
Valentin was resting peacefully, nonverbal during this visit. She did not show signs of pain. Son Chucho and daughter in law Graves were present. Graves mentioned that Valentin had requested a Bible earlier. Service Developer provided emotional and spiritual
support through presence, dialogue, Scripture reading and prayer. A Bible and a prayer blanket were also provided. Will continue support through weekly visits, remaining available as needed.
--- NOTE | 2024-09-13 11:12 | W.PN.HOSP.TC ---
Today's Communication/Plan
-
Comfort care
Assessment / Plan
Assessment / Plan
Physical exam:
General: Acutely on chronically ill. Cachectic.
Respiratory: Clear to Auscultation; Negative Wheezes, Rales or Rhonchi
Cardiac: Regular Rhythm and S1/S2
GI: Soft, Nontender and Nondistended
A/P:
83F Home hospice HX metastatic CA lung to bone and liver, no longer on on chemotherapy, hypercholesterolemia, alcohol use disorder, restless leg syndrome, fibromyalgia, anxiety/depression seen at ER coming from home hospice with intractable pain.
For IP hospice service for intractable pain.
Medical issues:
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
hypercholesterolemia
alcohol use disorder
restless leg syndrome
fibromyalgia
anxiety/depression
Plan:
Continue IV Dilaudid drip
Continue IV steroids, dexamethasone 2 mg every 12 hours
Cont Ativan to IV
Continue gabapentin and ropinirole.
Bowel regimen as needed
Continue Zoloft
Anticipated Discharge: > 48 hours
Subjective/Interval History
-
Date of Service: September 13, 2024
Patient more comfortable today and not moaning in pain as previously.
Objective Data
-
Vital Signs:
Vital Signs
Temp Pulse Resp BP Pulse Ox
99.9 F 99 12 135/86 90
09/13/24 07:00 09/13/24 07:00 09/13/24 07:00 09/13/24 07:00 09/13/24 07:00
I&O
09/12/24 09/13/24 09/14/24
06:59 06:59 06:59
Intake Total 100 / 100
Balance 100 / 100
--- NOTE | 2024-09-13 15:54 | PTCARENOTE ---
patient received 3 doses of Dilaudid for breakthrough pain. Dilaudid gtt increased to step 4 per protocol and is currently @1.5 mg/hr
--- NOTE | 2024-09-13 16:17 | HOSPNOTE ---
Patient GIP appropriate for management of pain and anxiety requiring IV pain medication. Patient had three PRN doses of Dilaudid today for breaktrhough pain and Dilaudid increased to 1.5 mg/hour. During visit patient incontinent of bladder, marlin
care completed, moaning noted with turning and repositioning. Patients family at the bedside, reviewed to contact hospice with any questions or concerns.
[2024-09-13] MEDS: DILAUDID 50 IV (17:13)
[2024-09-13] MEDS: DECADRON IV (19:03)
[2024-09-13 19:48] VITALS: BP 127/79
[2024-09-13] MEDS: DILAUDID 1.5 MG IV (20:08)
[2024-09-14] MEDS: DILAUDID 1.5 MG IV ×4 (00:15→05:57)
[2024-09-14] MEDS: NSS (PRESERVATIVE FREE) 0.5 ML IV ×5 (00:39→22:58)
[2024-09-14] MEDS: ATIVAN 1 MG IV ×5 (00:39→22:58)
[2024-09-14] MEDS: DECADRON 2 MG IV ×2 (05:58→17:37)
[2024-09-14] MEDS: REQUIP PO ×4 (07:06→21:04)
[2024-09-14] MEDS: ZOLOFT PO (07:06)
[2024-09-14 07:55] VITALS: BP 115/67
[2024-09-14] MEDS: DILAUDID 2 MG IV ×6 (09:19→23:54)
--- NOTE | 2024-09-14 10:31 | W.PN.HOSP.TC ---
Today's Communication/Plan
-
Continue comfort care measures
Assessment / Plan
Assessment / Plan
Physical exam:
General: Acutely on chronically ill. Cachectic. Minimally responsive
Respiratory: Clear to Auscultation; Negative Wheezes, Rales or Rhonchi
Cardiac: Regular Rhythm and S1/S2
GI: Soft, Nontender and Nondistended
A/P:
83F Home hospice HX metastatic CA lung to bone and liver, no longer on on chemotherapy, hypercholesterolemia, alcohol use disorder, restless leg syndrome, fibromyalgia, anxiety/depression seen at ER coming from home hospice with intractable pain.
For IP hospice service for intractable pain.
Medical issues:
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
hypercholesterolemia
alcohol use disorder
restless leg syndrome
fibromyalgia
anxiety/depression
Plan:
Continue IV Dilaudid drip
Continue IV steroids, dexamethasone 2 mg every 12 hours
Cont Ativan to IV
Continue gabapentin and ropinirole.
Bowel regimen as needed
Continue Zoloft
Discussed with son at bedside today
Anticipated Discharge: 24 - 48 hours
Subjective/Interval History
-
Date of Service: September 14, 2024
Had some mild agitation overnight. Appears comfortable today.
Objective Data
-
Vital Signs:
Vital Signs
Temp Pulse Resp BP Pulse Ox
99 F 95 20 115/67 90
09/14/24 07:55 09/14/24 07:55 09/14/24 07:55 09/14/24 07:55 09/14/24 07:55
I&O
09/13/24 09/14/24 09/15/24
06:59 06:59 06:59
Intake Total 100 / 100
Balance 100 / 100
--- NOTE | 2024-09-14 12:59 | HOSPNOTE ---
Patient unresponsive. FLACC 0 at rest, some facial grimacing with movement. Dilauded gtt increased to step 5 overnight. Encourage to medicate before care. Ativan x3 doses in 24 hours. Son at bedside and discussed active stages of dying and changes
patient may go through. Emotional support provided. Patient will remain GIP for management of symptoms that can not be managed in the outpatient setting.
[2024-09-14] MEDS: DILAUDID 50 IV (14:46)
[2024-09-14] MEDS: ROBINUL 0.2 MG IV (14:47)
[2024-09-14] MEDS: TYLENOL/FEVERALL 650 MG RECTAL (14:48)
[2024-09-14 19:56] VITALS: BP 108/70
[2024-09-15] MEDS: DILAUDID 2 MG IV ×3 (00:26→06:17)
[2024-09-15] MEDS: ATIVAN 1 MG IV (04:41)
[2024-09-15] MEDS: NSS (PRESERVATIVE FREE) 0.5 ML IV (04:41)
[2024-09-15] MEDS: DECADRON 2 MG IV (06:16)
[2024-09-15] MEDS: REQUIP PO ×4 (07:12→21:26)
[2024-09-15] MEDS: ZOLOFT PO (07:12)
[2024-09-15 07:50] VITALS: BP 86/54
[2024-09-15] MEDS: TYLENOL/FEVERALL 650 MG RECTAL (08:04)
[2024-09-15] MEDS: DILAUDID 50 IV (09:44)
--- NOTE | 2024-09-15 13:22 | HOSPNOTE ---
Patient is imminent. Unresponsive. BP 78/45, P 94, RR 16, T 99.6 Tem. FLACC 0/10. Patient was repositioned and personal hygiene provided. No sighns of discomfort with repositioning. Son and daughter in law are present. Emotional support provided.
Grieving appropriately. Informal report with facility RN Vidhya. Patient remains appropriate for a GIP level of care for pain and agitation management.
--- NOTE | 2024-09-15 14:04 | W.PN.HOSP.TC ---
Today's Communication/Plan
-
Continue with comfort measures
Assessment / Plan
Assessment / Plan
A/P:
83F Home hospice HX metastatic CA lung to bone and liver, no longer on on chemotherapy, hypercholesterolemia, alcohol use disorder, restless leg syndrome, fibromyalgia, anxiety/depression seen at ER coming from home hospice with intractable pain.
For IP hospice service for intractable pain.
Medical issues:
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
hypercholesterolemia
alcohol use disorder
restless leg syndrome
fibromyalgia
anxiety/depression
Plan:
Continue IV Dilaudid drip
Continue IV steroids, dexamethasone 2 mg every 12 hours
Cont Ativan to IV
Continue gabapentin and ropinirole.
Bowel regimen as needed
Continue Zoloft
Discussed with son at bedside today
Anticipated Discharge: 24 - 48 hours
Subjective/Interval History
-
Date of Service: September 15, 2024
Seen and examined at the bedside. No acute events overnight. Patient with fever on last recorded vitals.
Comfortable at this time, remains on comfort measures
Objective Data
-
Vital Signs:
Vital Signs
Temp Pulse Resp BP Pulse Ox
102.6 F H 100 12 86/54 90
09/15/24 07:50 09/15/24 07:50 09/15/24 07:50 09/15/24 07:50 09/15/24 07:50
I&O
09/14/24 09/15/24 09/16/24
06:59 06:59 06:59
Intake Total
Balance
Review of Systems
-
Unable to obtain full review of systems at this time due to: Dementia
Physical Exam
-
General: Well Developed, Comfortable, Appears Chronically Ill and Cachectic
HEENT: Normocephalic, Atraumatic and Moist Mucous Membranes
Respiratory: Rhonchi and Non Labored Respirations; Negative Accessory Resp Muscle Use
Cardiac: Regular Rhythm and S1/S2; Negative Murmur, Rub or Gallop
GI: Soft, Nontender, Nondistended and Normal Bowel Sounds
Musculoskeletal: No Clubbing, No Cyanosis and No Edema
Skin: Warm and Dry; Negative Rash
Neuro: Awake, Alert, Oriented and Nonfocal/Grossly Intact
Psych: Calm
[2024-09-15] MEDS: DECADRON IV (17:06)
[2024-09-15 22:00] VITALS: BP 93/58
[2024-09-16] MEDS: DILAUDID 2 MG IV ×6 (03:47→18:18)
[2024-09-16] MEDS: DILAUDID 50 IV (03:48)
--- NOTE | 2024-09-16 06:09 | PTCARENOTE ---
Resumed care of hospice pt on End of Life step 6, Dilaudid gtt infusing @3mg/hr via right SQ port. Pt non verbal, unresponsive, with flaccid extremities. Pt with increased resp distress post am bed bath with slight moaning. PRN Dilaudid push
administered per protocol. Pt returned to baseline comfort level. No other changes in assessment noted at this time. Son remains at bedside t/o the night. Pt remains at step 6 with Dilaudid gtt @3mg/hr. Will continue to monitor.
[2024-09-16] MEDS: DECADRON IV ×2 (06:45→14:55)
[2024-09-16 07:10] VITALS: BP 68/43
[2024-09-16] MEDS: ZOLOFT PO (08:15)
[2024-09-16] MEDS: REQUIP PO (08:15)
[2024-09-16] MEDS: TYLENOL/FEVERALL 650 MG RECTAL ×2 (10:06→15:03)
--- NOTE | 2024-09-16 10:37 | CM ---
Pt remains under GIP with Hospice.
Comfort measures provided.
PLAN Remain on GIP Hospice
--- NOTE | 2024-09-16 11:47 | HOSPNOTE ---
Patient is actively dying and appears comfortable at this time. Son is bedside emotional support provided. Patient is on step 6 of a dilaudid drip and appears comfortable at this time. Patient was given rectal tylenol for fever this am. Patient will
be seen daily by hospice nurse and continues to be inpatient appropriate for pain management.
--- NOTE | 2024-09-16 11:57 | W.PN.HOSP.TC ---
Today's Communication/Plan
-
Comfort measures
Assessment / Plan
Assessment / Plan
A/P:
83F Home hospice HX metastatic CA lung to bone and liver, no longer on on chemotherapy, hypercholesterolemia, alcohol use disorder, restless leg syndrome, fibromyalgia, anxiety/depression seen at ER coming from home hospice with intractable pain.
For IP hospice service for intractable pain.
Medical issues:
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
hypercholesterolemia
alcohol use disorder
restless leg syndrome
fibromyalgia
anxiety/depression
Plan:
Continue IV Dilaudid drip
Continue IV steroids, dexamethasone 2 mg every 12 hours
Cont Ativan to IV
Continue gabapentin and ropinirole.
Bowel regimen as needed
Continue Zoloft
Discussed with son at bedside today
Anticipated Discharge: 24 - 48 hours
Subjective/Interval History
-
Date of Service: September 16, 2024
Seen and examined at the bedside. Remains with fever, developing hypotension. Had large bowel movement this morning, suspicious for melenic stool
Objective Data
-
Vital Signs:
Vital Signs
Temp Pulse Resp BP Pulse Ox
100.8 F H 68 16 68/43 86
09/16/24 07:10 09/16/24 07:10 09/16/24 07:10 09/16/24 07:10 09/16/24 10:42
I&O
09/15/24 09/16/24 09/17/24
06:59 06:59 06:59
Intake Total
Balance /
Review of Systems
-
Unable to obtain full review of systems at this time due to: Dementia and Acuity
Physical Exam
-
General: Well Developed, Comfortable, Appears Chronically Ill and Cachectic
HEENT: Normocephalic, Atraumatic and Moist Mucous Membranes
Respiratory: Clear to Auscultation and Non Labored Respirations
Cardiac: Regular Rhythm and S1/S2
GI: Soft, Nontender and Nondistended
Musculoskeletal: No Clubbing, No Cyanosis and No Edema
Skin: Warm and Dry; Negative Rash
Neuro: Sedated and Nonfocal/Grossly Intact
Psych: Calm
[2024-09-16] MEDS: ATIVAN 1 MG IV (16:17)
--- NOTE | 2024-09-16 18:43 | W.PN.DEATH ---
Pronouncement of
-
Called to see patient to pronounce.
No spontaneous heart tones or respirations noted.
Patient not responsive to verbal stimuli.
Patient is pronounced .
Time of : 18:30
Date of : 09/16/24
Cause of : Metastatic lung cancer
Family Notified: Yes
--- NOTE | 2024-09-16 19:14 | PTCARENOTE ---
09/16: Pt prior to arrival to shift. [facility] notified. family at bedside.
--- NOTE | 2024-09-16 19:28 | PTCARENOTE ---
pt . cross coverage made aware. [facility] called.
--- NOTE | 2024-09-17 17:02 | W.DCSUMMARY ---
Discharge Summary
Discharge Data
Date of Admission: 09/11/24
Date of Discharge: 09/17/24
-
Pending Results: No
Hospital Course
84-year-old female with metastatic cancer that presented to the hospital with intractable pain, cachexia and failure to thrive. Family and patient decided to pursue inpatient hospice and comfort measures. She was started on palliative medications
including morphine, Ativan, ultimately requiring Dilaudid drip. Developed melanotic bowel movements and hypotension. Patient passed peacefully on 09/16/2024 in the hospital
Discharge Plan
-
Patient Disposition:
Date/Time
Date/Time: 09/16/24 18:30
Discharge Date and Time
Discharge Date/Time: 09/16/24 18:30
Print Language: JAPANESE
== END 2024-09-16 18:30 | disposition expired | DRG 951 ==
LOC: 2 NORTH 16:39
PROVIDERS: ADMITTING PHYSICIAN Internal Medicine; ATTENDING PHYSICIAN Internal Medicine; EMERGENCY PHYSICIAN Emergency Medicine; FAMILY PHYSICIAN Nurse Practitioner Adult Health
DX: Z51.5 Encounter for palliative care (principal); C78.7 Secondary malignant neoplasm of liver and intrahepatic bile duct; C79.51 Secondary malignant neoplasm of bone; C34.90 Malignant neoplasm of unspecified part of unspecified bronchus or lung; R64 Cachexia; Z68.1 Body mass index [BMI] 19.9 or less, adult; Z87.891 Personal history of nicotine dependence; Z66 Do not resuscitate; E78.00 Pure hypercholesterolemia, unspecified; F10.10 Alcohol abuse, uncomplicated; G25.81 Restless legs syndrome; M79.7 Fibromyalgia; F32.A Depression, unspecified; F41.9 Anxiety disorder, unspecified; R62.7 Adult failure to thrive; I95.9 Hypotension, unspecified
CPT/HCPCS: 96374; 99284